=== PATIENT | female | born 1980 | race African-American/Black ===

== ENCOUNTER 2017-01-18 09:00 | Inpatient (IN) | payer OTHER ==
[2017-03-22 10:47] VITALS: BMI 29.2
--- NOTE | 2017-03-25 12:18 | HP ---
DATE OF SERVICE: 03/29/2017 HISTORY OF PRESENT ILLNESS: The patient is a 37-year-old female with lupus, who has developed avasc ular necrosis of her left hip, unresponsive to conservative treatment. She has pain in her hip radi ating towards her left knee, which has become disabling despite rest, restriction of activities, use of narcotic pain medication and also medications under the direction of her senior solutions workflow consultant includin g hydroxychloroquine. The pain is now interfering with day-to-day activities including walking and working. PAST MEDICAL HISTORY: As noted above. The patient had right total hip replacement 1 year ago with good results. 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 She does have a history of urinary tract infections and preope rative lab was found to have urinary tract infection from E. coli, which has been treated with nitro furantoin. CURRENT MEDICATIONS: Include colchicine, hydroxychloroquine, Macrobid, Protonix, albuterol. ALLERGIES: She is allergic to ALEVE, which causes hives. She has been also avoiding NSAIDS in the past including a meloxicam and Relafen. FAMILY HISTORY, SOCIAL HISTORY AND REVIEW OF SYSTEMS: Otherwise unremarkable. PHYSICAL EXAMINATION: GENERAL: Reveals a healthy appearing black female. HEENT: Unremarkable. NECK: Supple. CHEST: Clear. HEART: Regular rate and rhythm. ABDOMEN: Soft, nontender. PELVIC/RECTAL/BREAST: Deferred. EXTREMITIES: Pertinent findings are related to the left hip. There is tenderness in the anterior h ip. There is a left antalgic gait. There is decreased range of motion of the left hip and groin pa in with internal rotation. The left leg is 1 cm short. Neurovascular exam is intact. LABORATORY AND X-RAY FINDINGS: X-rays of the left hip reveal avascular necrosis with collapse of th e femoral head, which had distinct change from previous x-rays taken 1 year ago. IMPRESSION: 1. Avascular necrosis, left femoral head. 2. Systemic lupus erythematosus. 3. Status post right total hip replacement. 4. Preoperative urinary tract infection secondary to Escherichia coli, treated with Macrobid. PLAN: Left total hip replacement. The nature of the surgery, length of recovery, and potential com plications such as infection, loss of motion, incomplete relief, neurovascular injury, thromboemboli c phenomenon, leg length discrepancy, possible transfusion, and need for revision have been discusse d in detail.
[2017-03-29] MEDS ORDERED: Tranexamic Acid 1,000 MG/100 ML BAG ONE ×2 (06:13→09:17)
[2017-03-29] MEDS ORDERED: CEFAZOLIN/Water 2 GM/20 ML SYRINGE ONE (06:13)
[2017-03-29] MEDS ORDERED: Midazolam HCl 2 mg/2 ml Vial ONE (06:21)
[2017-03-29] MEDS ORDERED: Fentanyl 100 MCG/2 ML VIAL ONE ×3 (06:21→10:14)
[2017-03-29] MEDS ORDERED: Ondansetron HCl/PF 4 MG/2 ML Vial ONE (06:47)
[2017-03-29] MEDS ORDERED: Bupivacaine PF 0.5% 30 ML VIAL ONE (07:10)
[2017-03-29] MEDS ORDERED: diphenhydrAMINE 50 MG/ML VIAL IM PRN (07:15)
[2017-03-29] MEDS ORDERED: Naloxone HCl 0.4 mg/ml Vial IVP PRN (07:15)
[2017-03-29] MEDS ORDERED: Ondansetron HCl/PF 4 MG/2 ML Vial IVP PRN ×3 (07:15→11:20)
[2017-03-29] MEDS ORDERED: Eucerin (Mineral Oil/Petrolatum,White) 30 gm Jar TOP PRN (07:15)
[2017-03-29] MEDS ORDERED: traMADol HCl 50 MG TAB PO PRN ×3 (07:15→11:20)
[2017-03-29] MEDS ORDERED: Promethazine HCl 25 MG SUPP PR PRN (07:15)
[2017-03-29] MEDS ORDERED: diphenhydrAMINE 50 MG/ML VIAL IVP PRN (07:15)
[2017-03-29] MEDS ORDERED: HYDROcodone/Acetaminophen 5/325 mg Tablet PO PRN ×2 (07:15)
[2017-03-29] MEDS ORDERED: Ketorolac Tromethamine 30 MG/ML VIAL IVP PRN (07:15)
[2017-03-29] MEDS ORDERED: Naloxone HCl 0.4 mg/ml Vial IV PRN (07:15)
[2017-03-29] MEDS ORDERED: Fentanyl/Bupivacaine 250 ML in Premix Bag 1 BAG EPIDURAL SCH (07:15)
[2017-03-29] MEDS ORDERED: Bupivacaine 0.25% 10 ML VIAL EPIDURAL PRN (07:15)
[2017-03-29] MEDS ORDERED: Zolpidem Tartrate 5 MG TAB PO PRN ×2 (07:15→11:20)
[2017-03-29] MEDS ORDERED: Promethazine HCl 25 MG/ML VIAL IM PRN ×2 (07:15→09:07)
[2017-03-29] MEDS ORDERED: Ketorolac Tromethamine 30 MG/ML VIAL ONE (07:24)
[2017-03-29] MEDS ORDERED: Propofol 200 MG/20 ML VIAL ONE (07:24)
[2017-03-29] MEDS ORDERED: Hydrocortisone Sod Succ/PF 100 mg/2 ml Vial ONE (07:24)
[2017-03-29] MEDS ORDERED: Glycopyrrolate 0.2 MG/ML 5 ML SYRINGE ONE (07:24)
[2017-03-29] MEDS ORDERED: Esmolol 100 MG/10 ML VIAL ONE (07:24)
[2017-03-29 08:31] LABS: Bilirubin Negative (Negative); Blood, Urine Negative (Negative); Glucose, Urine (Dipstick) Negative (Negative); Ketone, Urine Negative (Negative); Nitrite Negative (Negative); Protein, Urine (Dipstick) Negative (Neg-Trace); Urobilinogen 0.2 mg/dL (0.2-1.0)
[2017-03-29 08:33] LABS: Bacteria/HPF None Seen HPF (None Seen); Hyaline Casts/LPF 0-3 HYALINE CAST LPF (0-3 Hyaline); Squamous Epithelial 0-3 HPF (0-3)
[2017-03-29] MEDS ORDERED: Promethazine HCl 25 MG/ML VIAL SLOW IVP PRN ×2 (09:07→11:20)
[2017-03-29] MEDS ORDERED: Tranexamic Acid 1,000 MG in Sodium Chloride 0.9% 100 ML IVPB SCH ×2 (09:30→11:20)
[2017-03-29] MEDS ORDERED: FENTANYL EPIDURAL ONE (09:41)
[2017-03-29] MEDS ORDERED: BUPIVACAINE EPIDURAL ONE (09:41)
--- NOTE | 2017-03-29 10:09 | OP ---
DATE OF PROCEDURE: 03/29/2017 SURGEON: Davis Duggan M.D. VICE PRESIDENT TALENT MANAGEMENT: Hao Galindo PA-C. ANESTHESIA: General plus epidural. PREOPERATIVE DIAGNOSIS: Avascular necrosis with lupus arthritis, left hip. POSTOPERATIVE DIAGNOSIS: Avascular necrosis with lupus arthritis, left hip. PROCEDURES: Left total hip replacement with uncemented Trident acetabular component with X3 polyeth ylene insert and uncemented Accolade femoral stem with 32 mm Delta ceramic femoral head. NARRATIVE REPORT: After satisfactory anesthesia was induced in supine position, the patient was tyson zakia in the lateral decubitus position and this position held with hip positioning device. Sequentia l compression device was used on the non-operative leg throughout the procedure. The patient's left hip was then prepped and draped in routine sterile fashion. Hip was approached through a lateral c urvilinear incision centered over the greater trochanter and carried down to subcutaneous tissues. Bleeding points controlled with Bovie cautery. IT band and gluteal fascia were split by skin incisi on. Direct lateral approach to the hip joint was accomplished by dividing the anterior third of the gluteus medius and minimus tendons with Bovie cautery and reflecting this as a single flap anterior ly and medially. Anterior capsulectomy was performed. There was total collapse of the femoral head, which appeared to be longstanding with complete sluffi ng of the articular surface of the femoral head and collapse. There was abundant scar tissue format ion. Anterior capsulectomy was performed. The remaining hip dislocated anteriorly. The femoral ne ck was osteotomized with an oscillating saw using a trial prosthesis as a guide. The acetabulum was cleaned of all soft tissue and debris and then reamed down to bleeding subchondral bone for a total of 48 mm. It was felt that a 48 mm Trident PSL outer shell could be placed in a press fit fashion. The permanent outer shell was hammered into position. There was good fit and stability of the out er shell and the permanent X3 polyethylene insert was snapped into position and the proximal femur e xposed. It was opened with a box osteotome and then rasped in sequence to accept a #2 Accolade femo ral rasp. Trial reduction with 132 degree angle trunnion and the standard neck length femoral head gave appropriate size, fit, stability, and correction of leg length discrepancy. Hip was again disl ocated anteriorly and the trial components removed. The permanent #2 Accolade femoral stem was then hammered in position and there was again good fit and stability of the component. The permanent 32 mm Delta ceramic standard neck length femoral head was then placed on the trunnion and the hip agai n reduced and found to be stable. It was copiously irrigated with pulsatile lavage. The abductors were repaired with interrupted #2 Vicryl. IT band and gluteal fascia were closed with interrupted # 2 Vicryl and a running #2 Quill. Subcutaneous tissues were closed with interrupted 2-0 Vicryl, and a running 0 Quill suture. Skin was closed with running subcuticular 3-0 Monoderm and SurgiSeal skin adhesive. Sterile dressing was applied and the patient returned to the supine position. A pillow placed between her legs. Sequential compression device was applied to the operated leg and she was awakened and taken to the recovery room in stable condition. There were no apparent intraoperative complications. The estimated blood loss was 300 mL.
[2017-03-29] MEDS ORDERED: Non-Formulary Item 1 EACH (Buprenorphine [Butrans] 1 PATCH) TOP SCH (11:20)
[2017-03-29] MEDS ORDERED: diphenhydrAMINE 25 MG CAP PO PRN (11:20)
[2017-03-29] MEDS ORDERED: PROVENTIL INHALER 6.7 G (200 INHALATIONS) INH PRN (11:20)
[2017-03-29] MEDS ORDERED: Fentanyl 100 MCG/2 ML VIAL SLOW IVP PRN ×2 (11:20)
[2017-03-29] MEDS ORDERED: HYDROcodone/Acetaminophen 10/325 mg Tablet PO PRN ×2 (11:20)
[2017-03-29] MEDS ORDERED: Acetaminophen 325 MG TAB PO PRN (11:20)
--- NOTE | 2017-03-29 11:48 | RAD ---
LEFT HIP TWO VIEWS: HISTORY: Postop. FINDINGS: A total hip prosthesis has been placed, which is in satisfactory position. No signs of fracture. IMPRESSION: Placement of left hip prosthesis. POS: SONAM
[2017-03-29] MEDS ORDERED: Colchicine 0.6 MG TAB PO SCH (12:15)
[2017-03-29] MEDS ORDERED: Ketorolac Tromethamine 30 MG/ML VIAL IVP SCH ×2 (14:00→14:15)
[2017-03-29] MEDS: Sodium Chloride 0.9% 1,000 ML IV SCH ×2 (14:25→20:48)
[2017-03-29] MEDS: CEFAZOLIN/Water 2 GM/20 ML SYRINGE SLOW IVP SCH ×2 (14:26→21:12)
--- NOTE | 2017-03-29 17:52 | PDOC.PN ---
- Subjective Encounter Start Date: 03/29/17 Encounter Start Time: 14:00 Pt seen for management of medical comorbidities including asthma. Sleepy but arousable, denies chest pain, shortness of breath, fevrers or chills. - Objective MAR Reviewed: Yes Vital Signs & Weight: Vital Signs (12 hours) Temp Pulse Resp BP Pulse Ox 03/29/17 17:10 99 14 100 03/29/17 11:20 97.3 F L 71 18 131/87 99 03/29/17 10:10 97.3 F L 71 18 144/88 H 99 Weight Weight 160 lb Phys Exam - Physical Examination Constitutional: NAD HEENT: moist MMs, oral pharynx no lesions Neck: supple Respiratory: clear to auscultation bilateral Cardiovascular: RRR Gastrointestinal: soft, positive bowel sounds Musculoskeletal: pulses present s/p L hip surgery Psychiatric: normal affect Dx/Plan (1) Asthma Code(s): J45.909 - UNSPECIFIED ASTHMA, UNCOMPLICATED Status: Chronic Qualifiers: Asthma severity: mild intermittent Asthma complication type: uncomplicated Qualified Code(s): J45.20 - Mild intermittent asthma, uncomplicated (2) GERD (gastroesophageal reflux disease) Code(s): K21.9 - GASTRO-ESOPHAGEAL REFLUX DISEASE WITHOUT ESOPHAGITIS Status: Chronic Qualifiers: Esophagitis presence: without esophagitis Qualified Code(s): K21.9 - Gastro -esophageal reflux disease without esophagitis (3) Iron deficiency anemia Code(s): D50.9 - IRON DEFICIENCY ANEMIA, UNSPECIFIED Status: Chronic (4) Lupus (systemic lupus erythematosus) Code(s): M32.9 - SYSTEMIC LUPUS ERYTHEMATOSUS, UNSPECIFIED Status: Chronic - Plan * . Continue home medications including bronchodilators. s/p surgery for lupus arthritis of L hip. Continue PPI. DVT prophylaxis and pain management per orthopedic service. Review of Systems - Review of Systems Constitutional: negative: Fever, Chills, Sweats, Weakness, Malaise, Other Respiratory: negative: Cough, Dry, Shortness of Breath, Hemoptysis, SOB with Excertion, Pleuritic Pain, Sputum, Wheezing Cardiovascular: negative: Chest Pain, Palpitations, Orthopnea, Paroxysmal Noc. Dyspnea, Edema, Light Headedness - Medications/Allergies Allergies/Adverse Reactions: Allergies Allergy/AdvReac Type Severity Reaction Status Date / Time naproxen [From Aleve] Allergy Verified 03/22/17 10:27 Medications: Current Medications Acetaminophen (Tylenol) 650 mg PO Q4H PRN PRN Reason: WU/ T > 101F; Mild Pain (1-3) Hydrocodone Bitart/Acetaminophen ([place] 5/325) 2 tab PO Q4HR [facility] Albuterol Sulfate (Proventil Hfa) 2 puff INH Q4HR PRN PRN Reason: Wheezing Last Admin: 03/29/17 17:10 Dose: 2 puff Aspirin (Aspirin Chewable) 81 mg PO BID [facility] Cefazolin Sodium (Ancef) 2 gm SLOW IVP Q8HR [facility] Stop: 03/29/17 22:01 Last Admin: 03/29/17 14:26 Dose: 2 gm Colchicine (Colcrys) 0.6 mg PO BID [facility] Diphenhydramine HCl (Benadryl) 25 mg PO Q3H PRN PRN Reason: Itching Diphenhydramine HCl (Benadryl) 25 mg IM Q3H PRN PRN Reason: Itching Diphenhydramine HCl (Benadryl) 25 mg IVP Q3H PRN PRN Reason: Itching Ferrous Gluconate (Fergon) 324 mg PO BID-WM [facility] Gabapentin (Neurontin) 300 mg PO HS [facility] Hydroxychloroquine Sulfate (Plaquenil) 200 mg PO BID [facility] Fentanyl Citrate 250 ml/ (Device) 250 mls @ 8 mls/hr EPIDURAL INF [facility] Sodium Chloride (Normal Saline 0.9%) 1,000 mls @ 100 mls/hr IV .Q10H [facility] Last Admin: 03/29/17 14:25 Dose: 1,000 mls Vancomycin HCl 1 gm/ Device 200 mls @ 200 mls/hr IVPB 1800 [facility] Stop: 03/29/17 18:59 Influenza Virus Vaccine (Fluzone Quad [id number] Syringe) 0.5 ml IM .ONCE ONE Stop: 03/29/17 21:01 Iron/Minerals/Multivitamins (Theragran M) 1 tab PO DAILY [facility] Ketorolac Tromethamine (Toradol) 30 mg IVP Q6HR [facility] Stop: 03/31/17 12:01 Methylprednisolone (Medrol Dospak) 2 mg PO QAM-WM [facility] Mineral Oil/White Petrolatum (Eucerin Cream) 0 gm TOP PRN PRN PRN Reason: Itching Naloxone HCl (Narcan) 0.2 mg IV Q5MIN PRN PRN Reason: RR <=8 OR OBTUNDED/UNAROUSABLE Naloxone HCl (Narcan) 0.1 mg IVP Q15MIN PRN PRN Reason: URINARY RETENTION Nitrofurantoin Macrocrystals (Macrobid) 100 mg PO BID [facility] Ondansetron HCl (Zofran) 4 mg IVP Q6H PRN PRN Reason: Nausea/Vomiting Pantoprazole Sodium (Protonix) 40 mg PO DAILY [facility] Promethazine HCl (Phenergan) 12.5 mg IM Q4H PRN PRN Reason: Nausea Promethazine HCl (Phenergan Suppository) 25 mg VA Q4H PRN PRN Reason: Nausea/Vomiting Promethazine HCl (Phenergan) 12.5 mg SLOW IVP Q4H PRN PRN Reason: Nausea/Vomiting Senna/Docusate Sodium (Senokot S) 2 tab PO BID [facility] Sodium Chloride (Flush - Normal Saline) 10 ml IVF PRN PRN PRN Reason: Saline Flush Tramadol HCl (Ultram) 50 mg PO Q6H PRN PRN Reason: Mild Pain 1-3 Tramadol HCl (Ultram) 100 mg PO Q6H PRN PRN Reason: Moderate Pain 4-6 Zolpidem Tartrate (Ambien) 5 mg PO HSPRN PRN PRN Reason: Insomnia
[2017-03-29] MEDS ORDERED: Vancomycin HCl 1 GM in Premix Bag 1 BAG IVPB SCH (18:00)
[2017-03-29] MEDS: HYDROcodone/Acetaminophen 5/325 mg Tablet PO SCH ×2 (18:37→22:28)
[2017-03-29] MEDS: Ketorolac Tromethamine 30 MG/ML VIAL IVP SCH (19:44)
[2017-03-29] MEDS ORDERED: FLU VACC QS2017-18 36 mo. & older 0.5 ML SYRINGE IM ONE (21:00)
[2017-03-29] MEDS: diphenhydrAMINE 25 MG CAP PO PRN (21:09)
[2017-03-29] MEDS: Gabapentin 300 MG CAP PO SCH (21:09)
[2017-03-29] MEDS: Colchicine 0.6 MG TAB PO SCH (21:09)
[2017-03-30] MEDS: Ketorolac Tromethamine 30 MG/ML VIAL IVP SCH ×5 (00:59→23:17)
[2017-03-30] MEDS: diphenhydrAMINE 25 MG CAP PO PRN ×4 (02:05→21:06)
[2017-03-30] MEDS: HYDROcodone/Acetaminophen 5/325 mg Tablet PO SCH ×6 (02:05→21:07)
[2017-03-30] MEDS: Sodium Chloride 0.9% 1,000 ML IV SCH ×2 (06:04→17:23)
[2017-03-30 07:10] LABS: Hematocrit 24.1 % (36.0-47.0); Mean Platelet Volume 6.6 fL (7.4-10.4); Red Blood Cell (RBC) Count 2.85 mill/uL (4.20-5.40); White Blood Cell (WBC) Count 4.4 thou/uL (4.8-10.8)
[2017-03-30] MEDS: Ferrous Gluconate 324 MG TAB PO SCH ×2 (08:53→17:16)
[2017-03-30] MEDS: Colchicine 0.6 MG TAB PO SCH ×2 (08:53→21:07)
[2017-03-30] MEDS: Hydroxychloroquine Sulfate 200 MG TAB PO SCH ×2 (08:53→21:07)
[2017-03-30] MEDS: Multivitamin W/ Minerals 1 TAB PO SCH (08:54)
[2017-03-30] MEDS: Senokot S 8.6-50 MG TAB PO SCH ×2 (08:54→21:07)
[2017-03-30] MEDS: Nitrofurantoin Monohyd/M-Cryst 100 MG CAP PO SCH ×2 (08:54→21:06)
[2017-03-30] MEDS: methylPREDNISolone 4 mg Tablet PO SCH (10:47)
--- NOTE | 2017-03-30 14:32 | PDOC.PN ---
- Subjective Encounter Start Date: 03/30/17 Encounter Start Time: 09:00 Pt seen for followup re: asthma. Denies chest pain, shortness of breath, fevers or chills. - Objective MAR Reviewed: Yes Vital Signs & Weight: Vital Signs (12 hours) Temp Pulse Resp BP BP Pulse Ox 03/30/17 11:50 98.6 F 90 16 120/76 100 03/30/17 08:45 98.5 F 92 18 121/78 99 03/30/17 04:00 98.3 F 89 18 107/68 100 Weight Admit Weight 160 lb Weight 160 lb I&O: 03/29/17 03/30/17 03/31/17 06:59 06:59 06:59 Intake Total 2857 Output Total 1900 Balance 957 Result Diagrams: 03/30/17 06:34 Phys Exam - Physical Examination Constitutional: NAD HEENT: moist MMs Neck: supple Respiratory: clear to auscultation bilateral Cardiovascular: RRR Gastrointestinal: soft s/p L hip surgery Neurological: moves all 4 limbs Psychiatric: normal affect Dx/Plan (1) Asthma Code(s): J45.909 - UNSPECIFIED ASTHMA, UNCOMPLICATED Status: Chronic Qualifiers: Asthma severity: mild intermittent Asthma complication type: uncomplicated Qualified Code(s): J45.20 - Mild intermittent asthma, uncomplicated (2) GERD (gastroesophageal reflux disease) Code(s): K21.9 - GASTRO-ESOPHAGEAL REFLUX DISEASE WITHOUT ESOPHAGITIS Status: Chronic Qualifiers: Esophagitis presence: without esophagitis Qualified Code(s): K21.9 - Gastro -esophageal reflux disease without esophagitis (3) Iron deficiency anemia Code(s): D50.9 - IRON DEFICIENCY ANEMIA, UNSPECIFIED Status: Chronic (4) Lupus (systemic lupus erythematosus) Code(s): M32.9 - SYSTEMIC LUPUS ERYTHEMATOSUS, UNSPECIFIED Status: Chronic - Plan * . Continue bronchodilators. Continue PPI. Continue steroids. s/p L hip surgery. DVT prophylaxis, pain management per orthopedic service. Review of Systems - Review of Systems Constitutional: negative: Fever, Chills, Sweats, Weakness, Malaise Respiratory: negative: Cough, Dry, Shortness of Breath, Hemoptysis, SOB with Excertion, Pleuritic Pain, Sputum, Wheezing - Medications/Allergies Allergies/Adverse Reactions: Allergies Allergy/AdvReac Type Severity Reaction Status Date / Time naproxen [From Aleve] Allergy Verified 03/22/17 10:27 Medications: Current Medications Acetaminophen (Tylenol) 650 mg PO Q4H PRN PRN Reason: WU/ T > 101F; Mild Pain (1-3) Hydrocodone Bitart/Acetaminophen ([place] 5/325) 2 tab PO Q4HR [facility] Last Admin: 03/30/17 12:56 Dose: 2 tab Albuterol Sulfate (Proventil Hfa) 2 puff INH Q4HR PRN PRN Reason: Wheezing Last Admin: 03/29/17 17:10 Dose: 2 puff Aspirin (Aspirin Chewable) 81 mg PO BID [facility] Last Admin: 03/30/17 08:54 Dose: 81 mg Colchicine (Colcrys) 0.6 mg PO BID [facility] Last Admin: 03/30/17 08:53 Dose: 0.6 mg Diphenhydramine HCl (Benadryl) 25 mg PO Q3H PRN PRN Reason: Itching Last Admin: 03/30/17 11:50 Dose: 25 mg Diphenhydramine HCl (Benadryl) 25 mg IM Q3H PRN PRN Reason: Itching Diphenhydramine HCl (Benadryl) 25 mg IVP Q3H PRN PRN Reason: Itching Ferrous Gluconate (Fergon) 324 mg PO BID-WM [facility] Last Admin: 03/30/17 08:53 Dose: 324 mg Gabapentin (Neurontin) 300 mg PO HS [facility] Last Admin: 03/29/17 21:09 Dose: 300 mg Hydroxychloroquine Sulfate (Plaquenil) 200 mg PO BID [facility] Last Admin: 03/30/17 08:53 Dose: 200 mg Fentanyl Citrate 250 ml/ (Device) 250 mls @ 8 mls/hr EPIDURAL INF [facility] Sodium Chloride (Normal Saline 0.9%) 1,000 mls @ 100 mls/hr IV .Q10H [facility] Last Admin: 03/30/17 06:04 Dose: Not Given Iron/Minerals/Multivitamins (Theragran M) 1 tab PO DAILY [facility] Last Admin: 03/30/17 08:54 Dose: 1 tab Ketorolac Tromethamine (Toradol) 30 mg IVP Q6HR [facility] Stop: 03/31/17 12:01 Last Admin: 03/30/17 11:43 Dose: 30 mg Methylprednisolone (Medrol Dospak) 2 mg PO QAM-WM [facility] Last Admin: 03/30/17 10:47 Dose: 2 mg Mineral Oil/White Petrolatum (Eucerin Cream) 0 gm TOP PRN PRN PRN Reason: Itching Naloxone HCl (Narcan) 0.2 mg IV Q5MIN PRN PRN Reason: RR <=8 OR OBTUNDED/UNAROUSABLE Naloxone HCl (Narcan) 0.1 mg IVP Q15MIN PRN PRN Reason: URINARY RETENTION Nitrofurantoin Macrocrystals (Macrobid) 100 mg PO BID [facility] Last Admin: 03/30/17 08:54 Dose: 100 mg Ondansetron HCl (Zofran) 4 mg IVP Q6H PRN PRN Reason: Nausea/Vomiting Pantoprazole Sodium (Protonix) 40 mg PO DAILY [facility] Last Admin: 03/30/17 08:53 Dose: 40 mg Promethazine HCl (Phenergan) 12.5 mg IM Q4H PRN PRN Reason: Nausea Promethazine HCl (Phenergan Suppository) 25 mg IA Q4H PRN PRN Reason: Nausea/Vomiting Promethazine HCl (Phenergan) 12.5 mg SLOW IVP Q4H PRN PRN Reason: Nausea/Vomiting Senna/Docusate Sodium (Senokot S) 2 tab PO BID [facility] Last Admin: 03/30/17 08:54 Dose: 2 tab Sodium Chloride (Flush - Normal Saline) 10 ml IVF PRN PRN PRN Reason: Saline Flush Last Admin: 03/30/17 08:55 Dose: 10 ml Tramadol HCl (Ultram) 50 mg PO Q6H PRN PRN Reason: Mild Pain 1-3 Tramadol HCl (Ultram) 100 mg PO Q6H PRN PRN Reason: Moderate Pain 4-6 Zolpidem Tartrate (Ambien) 5 mg PO HSPRN PRN PRN Reason: Insomnia
[2017-03-30] MEDS: Gabapentin 300 MG CAP PO SCH (21:07)
[2017-03-31] MEDS: HYDROcodone/Acetaminophen 5/325 mg Tablet PO SCH ×4 (01:23→13:06)
[2017-03-31] MEDS: Sodium Chloride 0.9% 1,000 ML IV SCH ×2 (03:02→15:05)
[2017-03-31] MEDS: Ketorolac Tromethamine 30 MG/ML VIAL IVP SCH ×2 (06:00→15:05)
[2017-03-31 06:40] LABS: Hematocrit 25.1 % (36.0-47.0); Mean Platelet Volume 7.4 fL (7.4-10.4); Red Blood Cell (RBC) Count 2.91 mill/uL (4.20-5.40); White Blood Cell (WBC) Count 4.8 thou/uL (4.8-10.8)
[2017-03-31] MEDS: Hydroxychloroquine Sulfate 200 MG TAB PO SCH (09:01)
[2017-03-31] MEDS: Multivitamin W/ Minerals 1 TAB PO SCH (09:03)
[2017-03-31] MEDS: Senokot S 8.6-50 MG TAB PO SCH (09:03)
[2017-03-31] MEDS: Ferrous Gluconate 324 MG TAB PO SCH (09:03)
[2017-03-31] MEDS: Colchicine 0.6 MG TAB PO SCH (09:03)
[2017-03-31] MEDS: Nitrofurantoin Monohyd/M-Cryst 100 MG CAP PO SCH (09:03)
--- NOTE | 2017-03-31 11:47 | PRG ---
PROGRESS NOTE, SIGN-OUT NOTE AND TRANSFER OF CARE NOTE DATE OF SERVICE: 03/31/2017 DATE OF ADMISSION: 03/29/2017 DATE OF DISCHARGE: 03/31/2017 PRIMARY CARE PHYSICIAN: Artemio Gipson M.D. DISCHARGE DISPOSITION: Home. PRIMARY DISCHARGE DIAGNOSIS: Status post left hip replacement. SECONDARY DISCHARGE DIAGNOSES: Chronic iron deficiency anemia; systemic lupus erythematosus; histor y of squamous cell carcinoma of the anus; anemia, normocytic, normochromic; asthma. PRIMARY PROCEDURES AND OPERATIONS: Left hip replacement. RADIOLOGICAL INVESTIGATION: Hip x-ray. SIGNIFICANT LABS: Hemoglobin 8.2. Urinalysis: Leukocyte esterase small. Urine culture is negativ e. DISCHARGE MEDICATIONS: ProAir HFA 2 puffs q.4 hourly p.r.n., aspirin 81 mg p.o. b.i.d. for DVT prop hylaxis then daily, Butrans patch every 7 days, Celebrex 200 mg as directed, colchicine 0.6 mg p.o. b.i.d., Colace 100 mg p.o. daily, gabapentin 300 mg p.o. at bedtime, [place] 5 two tablets q.4 hourly p.r.n., Plaquenil 200 mg p.o. b.i.d., Protonix 40 mg p.o. daily, Solu-Medrol 2 mg p.o. daily. CONTRAINDICATIONS: None. CODE STATUS: FULL CODE. INPATIENT CONSULTANTS: Dr. Duggan was primary while in the hospital. Sound team was consulted for m edical comanagement. TEST RESULTS PENDING ON DISCHARGE: None. ALLERGIES: NAPROXEN. DISCHARGE PLAN: Post-hospital, the patient has followup appointment with Dr. Duggan on 04/14/2017 at 2:00 p.m. The patient is advised to make appointment with primary care physician, Dr. Gipson. HOSPITAL COURSE: A 37-year-old female with the above mentioned medical problems, who was electively admitted by Dr. Duggan on 03/29/2017 for left hip replacement, which was done on that day and postop eratively Sound team was consulted for medical comanagement. While in hospital, we continued all th e patient's home medication as well as on discharge. While in hospital, she was given aspirin for d eep venous thrombosis prophylaxis. The patient did very well with PT, OT as per [facility] pr otocol treatment. She remained hemodynamically stable. She did very well with the [facility] protocol treatment and today the patient is planned for discharge by primary team. The patient is seen and examined at bedside today. Plan of care discussed with the patient and [facility] ly members. REVIEW OF SYSTEMS: Negative. PHYSICAL EXAMINATION: VITAL SIGNS: Currently, temperature 98.4, pulse 97, respiratory rate 18, saturation 99%, blood pres sure 137/84, weight 160 pounds. GENERAL: The patient is currently alert, awake, no acute distress. HEAD: Normocephalic, atraumatic. LUNGS: Clear. CARDIAC: S1, S2 regular without any murmur. ABDOMEN: Soft and benign. EXTREMITIES: No edema. NEUROLOGIC: Nonfocal examination. The patient will be discharged home today.
[2017-03-31] MEDS: methylPREDNISolone 4 mg Tablet PO SCH (13:07)
[2017-03-31 13:16] VITALS: BP 121/87; TEMP 97.8
== END 2017-03-31 16:02 | disposition home health service (06) | DRG 470 ==
LOC: SURG A 03-29 05:44 → SJJU 03-29 10:21
PROVIDERS: ADMIT Orthopaedic Surgery; ATTEND Orthopaedic Surgery
PROC: 0SRB04A Replacement of Left Hip Joint with Ceramic on Polyethylene Synthetic Substitute, Uncemented, Open Approach (ICD-10-PCS; principal; 2017-03-29)
PROC: 3E0T3BZ Introduction of Anesthetic Agent into Peripheral Nerves and Plexi, Percutaneous Approach (ICD-10-PCS; 2017-03-29)
DX: M87.052 Idiopathic aseptic necrosis of left femur (principal); M32.9 Systemic lupus erythematosus, unspecified; N39.0 Urinary tract infection, site not specified; D50.9 Iron deficiency anemia, unspecified; K21.9 Gastro-esophageal reflux disease without esophagitis; B96.20 Unspecified Escherichia coli [E. coli] as the cause of diseases classified elsewhere; J45.909 Unspecified asthma, uncomplicated; M35.00 Sjogren syndrome, unspecified; Z96.641 Presence of right artificial hip joint; Z85.89 Personal history of malignant neoplasm of other organs and systems
CPT/HCPCS: 36415; 81001; 85027; 87086; 94664; G8978-GP-CN; G8979-GP-CJ; G8987-GO-CL; G8988-GO-CI; J0131; J1720; J1885; J2250; J2405; J2704; J3010; J3370; J7509; S0020

== ENCOUNTER 2017-03-22 09:39 | Outpatient (CLI) | payer OTHER ==
[2017-03-22 12:05] LABS: Hematocrit 33.4 % (36.0-47.0); Mean Platelet Volume 7.1 fL (7.4-10.4); Red Blood Cell (RBC) Count 3.95 mill/uL (4.20-5.40); White Blood Cell (WBC) Count 5.1 thou/uL (4.8-10.8)
[2017-03-22 12:07] LABS: Bilirubin Negative (Negative); Blood, Urine Large (Negative); Glucose, Urine (Dipstick) Negative (Negative); Ketone, Urine Negative (Negative); Nitrite Positive (Negative); Protein, Urine (Dipstick) 100 mg/dL (Neg-Trace)
[2017-03-22 12:13] LABS: PTT 28.7 SEC (22.9-36.1); Prothrombin Time 13.1 SEC (12.0-14.7)
[2017-03-22 12:17] LABS: Bacteria/HPF 4+ HPF (None Seen); Squamous Epithelial 0-3 HPF (0-3)
[2017-03-22 12:21] LABS: Yeast-All Forms None Seen HPF (None Seen)
[2017-03-22 12:22] LABS: Hyaline Casts/LPF 4-6 HYALINE CAST LPF (0-3 Hyaline)
[2017-03-22 12:25] LABS: Anion Gap 12 mmol/L (10-20); BUN (Urea Nitrogen) 22 mg/dL (7.0-18.7); Calc. Creatinine Clearance 0 mL/min (70-130); Calcium 9.3 mg/dL (7.8-10.44); Carbon Dioxide 26 mmol/L (22-29); Chloride 107 mmol/L (98-107); Estimated GFR-MDRD Greater than 90
--- NOTE | 2017-03-22 15:11 | EKG ---
Test Reason : Blood Pressure : / mmHG Vent. Rate : 096 BPM Atrial Rate : 096 BPM P-R Int : 134 ms QRS Dur : 084 ms QT Int : 366 ms P-R-T Axes : 057 011 012 degrees QTc Int : 462 ms Normal sinus rhythm Normal ECG Confirmed by DAVIS SCRUGGS ([id number]) on 03/22/2017 3:11:06 PM Referred By: SHUN Confirmed By:DAVIS SCRUGGS
== END 2017-03-22 09:40 | disposition home or self-care (01) ==
LOC: LABBT 09:39
PROVIDERS: ATTEND Orthopaedic Surgery
DX: Z01.818 Encounter for other preprocedural examination (principal); Z96.642 Presence of left artificial hip joint
CPT/HCPCS: 80048; 81001; 84702; 85027; 85610; 85730; 86850; 86900; 86901; 87077; 87081; 87086; 87186; 93005; 93010

== ENCOUNTER 2017-06-01 07:49 | Inpatient (IN) | payer OTHER ==
[2017-06-01] MEDS ORDERED: Albuterol Sulfate 2.5 mg/0.5 ml Neb ONE (08:30)
[2017-06-01 08:38] LABS: #Eosinphils 0.1 thou/uL (0.0-0.7); #Lymphocytes 0.7 thou/uL (1.20-3.40); #Monocytes 0.3 thou/uL (0.11-0.59); #Neutrophils 2.7 thou/uL (1.40-6.50); %Basophils 0.4 % (0.0-1.0); %Eosinophils 2.2 % (0.0-10.0); %Monocytes 7.5 % (0.0-10.0); %Neutrophils 71.8 % (42.0-75.0); Hemoglobin 8.9 g/dL (12.0-16.0); Mean Corpuscular HGB CONC 30.3 g/dL (32.0-36.0); Mean Corpuscular Hemoglobin 24.7 pg (27.0-31.0); Mean Corpuscular Volume 81.5 fl (81.0-99.0); Mean Platelet Volume 9.6 fL (7.4-10.4); Platelet Count 205 thou/uL (130-400); RBC Distribution Width 14.6 % (11.5-14.5); Red Blood Cell (RBC) Count 3.58 mill/uL (4.20-5.40); White Blood Cell (WBC) Count 3.8 thou/uL (4.8-10.8)
[2017-06-01 08:52] LABS: ALT (SGPT) 10 U/L (8-55); AST (SGOT) 24 U/L (5-34); Albumin 3.6 g/dL (3.5-5.0); Alkaline Phosphatase 95 U/L (40-150); Anion Gap 10 mmol/L (10-20); BUN (Urea Nitrogen) 11 mg/dL (7.0-18.7); Bilirubin, Total 0.3 mg/dL (0.2-1.2); Calc. Creatinine Clearance 0 mL/min (70-130); Calcium 8.9 mg/dL (7.8-10.44); Carbon Dioxide 22 mmol/L (22-29); Chloride 106 mmol/L (98-107); Estimated GFR-MDRD 87; Globulin 5.7 g/dL (2.4-3.5); Glucose 94 mg/dL (70-105); Potassium 3.8 mmol/L (3.5-5.1); Protein, Total 9.3 g/dL (6.0-8.3); Sodium 134 mmol/L (136-145)
[2017-06-01] MEDS ORDERED: Dexamethasone 10 MG/ML VIAL ONE (09:07)
[2017-06-01] MEDS ORDERED: Magnesium Sulfate 2 GM/100 ML BAG ONE (09:09)
--- NOTE | 2017-06-01 09:15 | RAD ---
PORTABLE AP CHEST: Date: 06-01-17 History: Fever with onset of symptoms last night. Comparison: 04-01-16 FINDINGS: There is minimal patchy density seen within the left upper lobe. While some of this could be related to super imposition of structures, this does have a different appearance when compared to the prior e xam. Developing area of pneumonitis cannot be entirely excluded. Short internal follow up chest x-ray is recommended. The lungs are otherwise clear. Cardiac silhouette and pulmonary vasculature are with in normal limits. Osseous structures are intact. No other interval change. IMPRESSION: Minimal linear and patchy density in the left upper lobe. While this may represent superimposition of structures, this does have a different appearance compared to the prior exam. A developing area of p neumonitis cannot be entirely excluded. Short interval follow up chest x-ray is recommended. POS: SONAM
[2017-06-01] MEDS ORDERED: Ibuprofen 800 MG TAB ONE (10:13)
[2017-06-01 11:01] LABS: Bilirubin Negative (Negative); Blood, Urine Negative (Negative); Glucose, Urine (Dipstick) Negative (Negative); Leukocyte Negative (Negative); Nitrite Negative (Negative); Protein, Urine (Dipstick) Negative (Neg-Trace); Urobilinogen 0.2 mg/dL (0.2-1.0)
[2017-06-01 11:05] LABS: Clarity Clear (Clear)
[2017-06-01 11:06] LABS: Specific Gravity, Urine 1.003 (1.002-1.036)
[2017-06-01] MEDS ORDERED: Ondansetron HCl/PF 4 MG/2 ML Vial IVP PRN (12:27)
[2017-06-01] MEDS ORDERED: cloNIDine 0.1 MG TAB PO PRN (12:27)
[2017-06-01] MEDS ORDERED: Acetaminophen 325 MG TAB PO PRN (12:27)
[2017-06-01] MEDS ORDERED: HYDROcodone/Acetaminophen 5/325 mg Tablet PO PRN (12:27)
[2017-06-01] MEDS ORDERED: Chloraseptic Spray 180 ml Bottle PO PRN (12:27)
[2017-06-01] MEDS ORDERED: Senokot 8.6 MG TAB PO PRN (12:27)
[2017-06-01] MEDS ORDERED: Milk Of Magnesia 30 ML UDCUP PO PRN (12:27)
[2017-06-01] MEDS ORDERED: Benzonatate 100 MG CAP PO PRN (12:27)
[2017-06-01] MEDS ORDERED: Zolpidem Tartrate 5 MG TAB PO PRN (12:27)
[2017-06-01] MEDS ORDERED: Loperamide HCl 2 MG CAP PO PRN (12:27)
[2017-06-01] MEDS ORDERED: Loratadine 10 MG TAB PO PRN (12:27)
[2017-06-01] MEDS ORDERED: Sodium Chloride 0.65% Nasal 44 ML BOT EA NARE PRN (12:27)
[2017-06-01] MEDS ORDERED: Eucerin (Mineral Oil/Petrolatum,White) 30 gm Jar TOP PRN (12:27)
[2017-06-01] MEDS ORDERED: hydrALAZINE 20 MG/ML VIAL SLOW IVP PRN (12:27)
[2017-06-01] MEDS ORDERED: Mag-Al 1200 mg/1200 mg/30 ML UDCUP PO PRN (12:27)
[2017-06-01] MEDS ORDERED: Diabetic Tussin 200 MG/10 ML UDCUP PO PRN (12:27)
[2017-06-01] MEDS ORDERED: Artificial Tears 18 DROP/0.9 ML EA EYE PRN (12:27)
[2017-06-01] MEDS ORDERED: Ondansetron ODT 4 MG TAB PO PRN (12:27)
--- NOTE | 2017-06-01 12:32 | HP ---
PRIMARY CARE PHYSICIAN: Dr. Artemio Gipson. REASON FOR ADMISSION: Acute asthmatic bronchitis, sepsis. HISTORY OF PRESENT ILLNESS: A 37-year-old -Iranian female with a history of lupus who presen ryan to the emergency room with complaint of headache, body ache, generalized weakness which was start ed 2 days ago. All symptoms started with runny nose, followed by sore throat and then cough producti ve of white yellowish sputum. Last night patient was having high grade fever with chills. She start ed having increasing cough and she started wheezing. She was trying her home medications with nebuli zer medication, but her condition deteriorated overnight and this morning she was extremely short of breath and decided to go to emergency room for evaluation. When she came to ER, she was tachypneic, tachycardic with fever of 102.2. The patient had routine blood test, which was unremarkable includin g influenza screen came back negative. Patient was tachypneic, wheezing, and tachycardic and that is why we decided to keep this patient in the hospital for admission. 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 Beltran on Plaquenil and metoprolol, allergic rhinitis and eczema. PAST SURGICAL HISTORY: x4, axillary lymph node biopsy which were negative for metastasis, MediPort placement in right subclavian and subsequent removal, left total hip replacement, right tota l hip replacement, EGD and colonoscopy, tubal ligation, punch biopsy of perianal skin lesion. PAST PSYCHIATRIC HISTORY: Reviewed and negative. SOCIAL HISTORY: Patient is . She has four kids. She lives at home with her family. No hist ory of tobacco, alcohol or illicit drug abuse. FAMILY HISTORY: Positive for hypertension to father by age of 68, also diabetes, heart disease runs among several family members, but no strong family history of premature coronary artery disease, stro ke or cancer. REVIEW OF SYSTEMS: The following complete review of systems was negative, unless otherwise mentioned in the HPI or below: Constitutional: Weight loss or gain, ability to conduct usual activities. Skin: Rash, itching. Eyes: Double vision, pain. ENT/Mouth: Nose bleeding, neck stiffness, pain, tenderness. Cardiovascular: Palpitations, dyspnea on exertion, orthopnea. Respiratory: Shortness of breath, wheezing, cough, hemoptysis, fever or night sweats. Gastrointestinal: Poor appetite, abdominal pain, heartburn, nausea, vomiting, constipation, or diarr hea. Genitourinary: Urgency, frequency, dysuria, nocturia. Musculoskeletal: Pain, swelling. Neurologic/Psychiatric: Anxiety, depression. Allergy/Immunologic: Skin rash, bleeding tendency. Please see my HPI for pertinent positive and negative. All other review of systems reviewed and nega tive except as mentioned in the HPI. ALLERGIES: NAPROXEN. CURRENT HOME MEDICATIONS: Albuterol nebulization q.8 hourly and ProAir HFA 2 puffs q.4 hourly p.r.n. , aspirin 81 mg p.o. daily, Butrans patch every 7 days, Celebrex 200 mg as directed, colchicine 0.6 m g twice daily, gabapentin 300 mg p.o. at bedtime, [place] 5 one or two tablets q.4 hourly p.r.n., Plaqu enil 200 mg twice daily, Medrol 2 mg p.o. daily, and Protonix 40 mg p.o. daily. EMERGENCY ROOM COURSE: Patient has received Levaquin 750 mg, Motrin 800 mg IV, magnesium sulfate, De cadron 10 mg, albuterol inhalation and nebulization with DuoNeb therapy as well as 2 liters of IV flu id. PHYSICAL EXAMINATION: VITAL SIGNS: Currently, blood pressure 135/97, pulse 147, respiratory rate 24, temperature 102.2, sa turation 99% on room air, and weight 77.1 kilograms. GENERAL: Patient is currently alert, awake, mild respiratory distress, febrile. HEAD: Normocephalic, atraumatic. EYES: Pupils round, reactive to light. Extraocular muscle intact. ENT: Oropharynx within normal limits. Moist mucous membranes. Mild pharyngeal erythema noted. No exudate. NECK: Supple, no JVD, no meningeal signs of irritation. LUNGS: Bilateral end expiratory wheezing heard. No rales. CARDIAC: S1, S2 regular, tachycardia, no murmur, no gallop, no rub. ABDOMEN: Soft, bowel sounds present, nontender, nondistended. No organomegaly, no mass, no suprapub ic tenderness. BACK: Examination unremarkable, no CVA tenderness. EXTREMITIES: Upper extremity passive movements of all joints are normal. Lower extremities: No alok ma. Good peripheral pulsation. No calf tenderness. SKIN: No skin rash. HEMATOLOGICAL SYSTEM: No lymphadenopathy. PSYCHIATRIC: Normal affect. NEUROLOGIC: Nonfocal examination. IMAGING DATA AND SIGNIFICANT LABORATORY DATA: 1. EKG showing sinus tachycardia. Chest x-ray based on my review, minimal linear and patchy density in left upper lobe suspected for infiltration. 2. CBC: WBC 3.8, hemoglobin 8.9, and platelets 205. 3. BMP: Sodium 134, potassium 3.8, chloride 106, carbon dioxide 22, BUN 11, creatinine 0.89, glucos e 94, and calcium 8.9. 4. LFT: AST 24, ALT 10, alkaline phosphatase 95, albumin 3.6, lactic acid 0.7. Urinalysis normal. ASSESSMENT AND PLAN/IMPRESSION: 1. Acute asthmatic bronchitis with flu-like illness. The patient will require admission for her res piratory distress. She will be monitored on telemetry floor for her tachycardia. She will be treate d with DuoNeb every 4 hourly, Dulera 2 puffs inhalation b.i.d., Mucinex 600 mg 3 times daily, Solu-Me drol 40 mg IV q.6 hourly, and empiric antibiotic therapy with Rocephin and levofloxacin. The patient will be given symptomatic treatment for cough with Tessalon, Robitussin and Chloraseptic spray. 2. Flu-like illness, our suspicious for influenza or other virus is high and that is why we will martinez ck respiratory virus panel by PCR. 3. Lupus. Patient is already on high dose of steroid and that is why we will continue only Plaqueni l 200 mg twice daily as per home dosage. 4. Sepsis criteria. The patient is having high grade fever, tachycardia, leukopenia and patient is immunocompromised from chronic steroid therapy. We will follow up on culture result. Patient is sta rted on broad spectrum antibiotic therapy. 5. Anemia, normocytic normochromic, likely due to chronic disease from lupus. We will start ferrous sulfate 325 mg p.o. daily. 6. Gastroesophageal reflux disease. We will continue Protonix 40 mg p.o. daily. 7. Avascular necrosis of hip, required bilateral hip replacement, currently problem is stable. 8. Deep venous thrombosis prophylaxis, Lovenox 40 mg subcu daily. 9. Gastrointestinal prophylaxis, Protonix 40 mg p.o. daily. CODE STATUS: The patient is FULL CODE. Patient does not have any surrogate decision maker. Disposition plan based on clinical course. We are expecting patient's stay in the hospital more than 2 midnights. Plan of care discussed with the patient and family member at bedside in the emergency room.
[2017-06-01 12:42] VITALS: BMI 26.6
[2017-06-01] MEDS: cefTRIAXone\\ROCEPHIN 2 GM in Sodium Chloride 0.9% 100 ML IVPB SCH (14:02)
[2017-06-01] MEDS: Sodium Chloride 0.9% 1,000 ML IV SCH ×2 (14:02→22:17)
[2017-06-01] MEDS: guaiFENesin ER 600 MG TAB PO SCH ×2 (16:31→21:18)
[2017-06-01] MEDS ORDERED: COLCHICINE PO SCH (21:00)
[2017-06-01] MEDS: Gabapentin 300 MG CAP PO SCH (21:18)
[2017-06-01] MEDS: Hydroxychloroquine Sulfate 200 MG TAB PO SCH (21:18)
[2017-06-02] MEDS: Sodium Chloride 0.9% 1,000 ML IV SCH ×2 (00:55→09:20)
[2017-06-02 05:40] LABS: #Lymphocytes 0.6 thou/uL (1.20-3.40); #Monocytes 0.1 thou/uL (0.11-0.59); #Neutrophils 1.8 thou/uL (1.40-6.50); %Eosinophils 0.4 % (0.0-10.0); %Lymphocytes 25.1 % (21.0-51.0); %Monocytes 2.4 % (0.0-10.0); %Neutrophils 72.1 % (42.0-75.0); Hemoglobin 8.5 g/dL (12.0-16.0); Mean Corpuscular HGB CONC 31.2 g/dL (32.0-36.0); Mean Corpuscular Hemoglobin 25.7 pg (27.0-31.0); Mean Corpuscular Volume 82.2 fl (81.0-99.0); Mean Platelet Volume 9.2 fL (7.4-10.4); Platelet Count 209 thou/uL (130-400); RBC Distribution Width 14.4 % (11.5-14.5); Red Blood Cell (RBC) Count 3.31 mill/uL (4.20-5.40); White Blood Cell (WBC) Count 2.5 thou/uL (4.8-10.8)
[2017-06-02 06:05] LABS: ALT (SGPT) 9 U/L (8-55); AST (SGOT) 19 U/L (5-34); Albumin 3.4 g/dL (3.5-5.0); Alkaline Phosphatase 75 U/L (40-150); Anion Gap 11 mmol/L (10-20); BUN (Urea Nitrogen) 14 mg/dL (7.0-18.7); Bilirubin, Total Less than 0.2 mg/dL (0.2-1.2); Calc. Creatinine Clearance 125 mL/min (70-130); Calcium 8.9 mg/dL (7.8-10.44); Carbon Dioxide 19 mmol/L (22-29); Chloride 113 mmol/L (98-107); Estimated GFR-MDRD Greater than 90; Globulin 5.3 g/dL (2.4-3.5); Glucose 145 mg/dL (70-105); Protein, Total 8.7 g/dL (6.0-8.3); Sodium 139 mmol/L (136-145)
[2017-06-02] MEDS ORDERED: Colchicine 0.6 MG TAB PO SCH (09:00)
[2017-06-02] MEDS: Ferrous Sulfate 325 MG TAB PO SCH (09:21)
[2017-06-02] MEDS: Docusate 100 MG CAP PO SCH ×2 (09:22→20:51)
[2017-06-02] MEDS: Hydroxychloroquine Sulfate 200 MG TAB PO SCH ×2 (09:22→20:51)
[2017-06-02] MEDS: guaiFENesin ER 600 MG TAB PO SCH ×3 (09:22→20:51)
[2017-06-02] MEDS: Enoxaparin Sodium 40 MG/0.4 ML SYRINGE SC SCH (09:25)
[2017-06-02] MEDS: Colchicine 0.6 MG TAB PO SCH ×2 (09:42→20:51)
--- NOTE | 2017-06-02 11:06 | PDOC.PN ---
- Subjective Encounter Start Date: 06/02/17 Encounter Start Time: 07:20 -: old records requested/rev Patient seen and examined. No new complaints. No overnight events, pt feels much better, no fever - Objective Resuscitation Status: Resuscitation Status FULL:Full Resuscitation MAR Reviewed: Yes Vital Signs & Weight: Vital Signs (12 hours) Temp Pulse Resp BP BP Pulse Ox 06/02/17 08:00 97.8 F 115 H 20 06/02/17 07:47 97.8 F 115 H 20 128/71 93 L 06/02/17 06:51 96 06/02/17 06:48 98 16 06/02/17 03:17 98.1 F 107 H 16 124/79 92 L 06/02/17 02:25 101 H 16 94 L 06/02/17 00:00 98 F 114 H 20 133/66 97 Weight Weight 154 lb I&O: 06/01/17 06/02/17 06/03/17 06:59 06:59 06:59 Intake Total 1951 240 Balance 1951 240 Result Diagrams: 06/02/17 05:24 06/02/17 05:24 EKG Reviewed by me: Yes (sinus tachycardia) Phys Exam - Physical Examination Constitutional: NAD HEENT: PERRLA, moist MMs, sclera anicteric Neck: no JVD, supple Respiratory: no rales, wheezing present Cardiovascular: RRR, no significant murmur, no rub Gastrointestinal: soft, non-tender, no distention, positive bowel sounds Musculoskeletal: no edema, pulses present Neurological: non-focal, normal sensation, moves all 4 limbs Lymphatic: no nodes Psychiatric: normal affect, A&O x 3 Skin: no rash, normal turgor Dx/Plan (1) Acute asthmatic bronchitis Code(s): J45.909 - UNSPECIFIED ASTHMA, UNCOMPLICATED Status: Acute (2) Acute bronchitis due to human metapneumovirus Code(s): J20.8 - ACUTE BRONCHITIS DUE TO OTHER SPECIFIED ORGANISMS Status: Acute (3) Sepsis Code(s): A41.9 - SEPSIS, UNSPECIFIED ORGANISM Status: Acute (4) Anemia, normocytic normochromic Code(s): D64.9 - ANEMIA, UNSPECIFIED Status: Chronic (5) GERD (gastroesophageal reflux disease) Code(s): K21.9 - GASTRO-ESOPHAGEAL REFLUX DISEASE WITHOUT ESOPHAGITIS Status: Chronic Qualifiers: (6) Lupus (systemic lupus erythematosus) Code(s): M32.9 - SYSTEMIC LUPUS ERYTHEMATOSUS, UNSPECIFIED Status: Chronic (7) Squamous cell cancer, anus Code(s): C21.0 - MALIGNANT NEOPLASM OF ANUS, UNSPECIFIED Status: Chronic - Plan cont current plan of care, plan discussed w/ family, continue antibiotics, respiratory therapy * ontinue rocephin and levaquin * medication reviewed as below * symptomatic treatment * will reduce solumedrol 20 mg iv q 6 hourly * expecting discharge in 24-48 hours. * change duoneb q 6 hr * DC IVF Review of Systems - Review of Systems Constitutional: negative: fever, chills, sweats, weakness, malaise, other Eyes: negative: Pain, Vision Change, Conjunctivae Inflammation, Eyelid Inflammation, Redness, Other ENT: negative: Ear Pain, Ear Discharge, Nose Pain, Nose Discharge, Nose Congestion, Mouth Pain, Mouth Swelling, Throat Pain, Throat Swelling, Other Respiratory: Cough, Wheezing. negative: Dry, Shortness of Breath, Hemoptysis, SOB with Excertion, Pleuritic Pain, Sputum Cardiovascular: negative: chest pain, palpitations, orthopnea, paroxysmal nocturnal dyspnea, edema, light headedness, other Gastrointestinal: negative: Nausea, Vomiting, Abdominal Pain, Diarrhea, Constipation, Melena, Hematochezia, Other Genitourinary: negative: Dysuria, Frequency, Incontinence, Hematuria, Retention , Other Musculoskeletal: negative: Neck Pain, Shoulder Pain, Arm Pain, Back Pain, Hand Pain, Leg Pain, Foot Pain, Other Skin: negative: Rash, Lesions, Levi, Bruising, Other - Medications/Allergies Allergies/Adverse Reactions: Allergies Allergy/AdvReac Type Severity Reaction Status Date / Time naproxen [From Aleve] Allergy Verified 03/22/17 10:27 Medications: Current Medications Acetaminophen (Tylenol) 650 mg PO Q4H PRN PRN Reason: Headache/Fever or Pain Hydrocodone Bitart/Acetaminophen ([place] 5/325) 1 tab PO Q4H PRN PRN Reason: Moderate Pain (4-6) Al Hydroxide/Mg Hydroxide (Maalox) 30 ml PO Q6H PRN PRN Reason: Heartburn or Indigestion Albuterol/Ipratropium (Duoneb) 3 ml NEB Q2H PRN PRN Reason: SOB &/or Wheezing Albuterol/Ipratropium (Duoneb) 3 ml NEB [id number] [facility] Artificial Tears (Tears Naturale) 0 drop EA EYE PRN PRN PRN Reason: Dry Eyes Aspirin (Aspirin Chewable) 81 mg PO DAILY [facility] Last Admin: 06/02/17 09:22 Dose: 81 mg Benzonatate (Tessalon) 100 mg PO Q4H PRN PRN Reason: Cough Clonidine (Catapres) 0.1 mg PO Q4H PRN PRN Reason: Systolic BP > 180 Colchicine (Colcrys) 0.6 mg PO BID [facility] Last Admin: 06/02/17 09:42 Dose: 0.6 mg Docusate Sodium (Colace) 100 mg PO BID [facility] Last Admin: 06/02/17 09:22 Dose: 100 mg Enoxaparin Sodium (Lovenox) 40 mg SC 0900 [facility] Last Admin: 06/02/17 09:25 Dose: Not Given Ferrous Sulfate (Feosol) 325 mg PO QAM-[facility] Last Admin: 06/02/17 09:21 Dose: 325 mg Gabapentin (Neurontin) 300 mg PO HS [facility] Last Admin: 06/01/17 21:18 Dose: 300 mg Guaifenesin (Robitussin Sf) 200 mg PO Q4H PRN PRN Reason: Cough Guaifenesin (Mucinex) 600 mg PO TID [facility] Last Admin: 06/02/17 09:22 Dose: 600 mg Hydralazine HCl (Apresoline) 10 mg SLOW IVP Q4H PRN PRN Reason: Systolic BP > 180 Hydroxychloroquine Sulfate (Plaquenil) 200 mg PO BID [facility] Last Admin: 06/02/17 09:22 Dose: 200 mg Ceftriaxone Sodium 2 gm/ (Sodium Chloride) 100 mls @ 200 mls/hr IVPB 1300 [facility] Last Admin: 06/01/17 14:02 Dose: 100 mls Levofloxacin 750 mg/ Device 150 mls @ 100 mls/hr IVPB Q24HR [facility] Last Admin: 06/01/17 13:55 Dose: Not Given Loperamide HCl (Imodium) 2 mg PO PRN PRN PRN Reason: Diarrhea/Loose Stools Loratadine (Claritin) 10 mg PO DAILYPRN PRN PRN Reason: Sinus Symptoms Magnesium Hydroxide (Milk Of Magnesium) 30 ml PO DAILYPRN PRN PRN Reason: Constipation Methylprednisolone Sodium Succinate (Solu-Medrol) 20 mg IVP 0200,0800,1400, 2000 [facility] Mineral Oil/White Petrolatum (Eucerin Cream) 0 gm TOP BIDPRN PRN PRN Reason: Dry Skin (Buprenorphine [ (Butrans] 1 Patch)) 0 patch TOP Sa [facility] Ondansetron HCl (Zofran Odt) 4 mg PO Q6H PRN PRN Reason: Nausea/Vomiting Ondansetron HCl (Zofran) 4 mg IVP Q6H PRN PRN Reason: Nausea/Vomiting Pantoprazole Sodium (Protonix) 40 mg PO DAILY [facility] Last Admin: 06/02/17 09:22 Dose: 40 mg Phenol (Chloraseptic [place] 180 Ml Bot) 0 ml PO PRN PRN PRN Reason: Sore Throat Senna (Senokot) 2 tab PO HSPRN PRN PRN Reason: Constipation Sodium Chloride ([place] Nasal [place] 0.65%) 0 ml EA NARE QIDPRN PRN PRN Reason: Nasal Congestion Zolpidem Tartrate (Ambien) 5 mg PO HSPRN PRN PRN Reason: Insomnia
[2017-06-02] MEDS: cefTRIAXone\\ROCEPHIN 2 GM in Sodium Chloride 0.9% 100 ML IVPB SCH (14:23)
[2017-06-02] MEDS: Gabapentin 300 MG CAP PO SCH (20:51)
[2017-06-03 05:44] LABS: #Lymphocytes 0.8 thou/uL (1.20-3.40); #Monocytes 0.2 thou/uL (0.11-0.59); #Neutrophils 5.2 thou/uL (1.40-6.50); %Basophils 0.3 % (0.0-1.0); %Eosinophils 0.3 % (0.0-10.0); %Lymphocytes 12.2 % (21.0-51.0); %Monocytes 3.1 % (0.0-10.0); %Neutrophils 84.1 % (42.0-75.0); Hemoglobin 8.5 g/dL (12.0-16.0); Mean Corpuscular HGB CONC 31.2 g/dL (32.0-36.0); Mean Corpuscular Hemoglobin 25.7 pg (27.0-31.0); Mean Corpuscular Volume 82.5 fl (81.0-99.0); Platelet Count 223 thou/uL (130-400); RBC Distribution Width 14.5 % (11.5-14.5); Red Blood Cell (RBC) Count 3.32 mill/uL (4.20-5.40); White Blood Cell (WBC) Count 6.2 thou/uL (4.8-10.8)
[2017-06-03 06:02] LABS: Anion Gap 11 mmol/L (10-20); BUN (Urea Nitrogen) 17 mg/dL (7.0-18.7); Calc. Creatinine Clearance 131 mL/min (70-130); Calcium 8.8 mg/dL (7.8-10.44); Carbon Dioxide 20 mmol/L (22-29); Chloride 110 mmol/L (98-107); Estimated GFR-MDRD Greater than 90; Glucose 124 mg/dL (70-105); Potassium 3.8 mmol/L (3.5-5.1); Sodium 137 mmol/L (136-145)
[2017-06-03 07:46] VITALS: BP 122/73; TEMP 98.1
[2017-06-03] MEDS: Hydroxychloroquine Sulfate 200 MG TAB PO SCH (09:45)
[2017-06-03] MEDS: Docusate 100 MG CAP PO SCH (09:45)
[2017-06-03] MEDS: Ferrous Sulfate 325 MG TAB PO SCH (09:45)
[2017-06-03] MEDS: guaiFENesin ER 600 MG TAB PO SCH (09:45)
[2017-06-03] MEDS: Colchicine 0.6 MG TAB PO SCH (09:45)
[2017-06-03] MEDS: Enoxaparin Sodium 40 MG/0.4 ML SYRINGE SC SCH (09:46)
--- NOTE | 2017-06-03 09:52 | PDOC.PN ---
- Subjective Encounter Start Date: 06/03/17 Encounter Start Time: 07:30 Patient seen and examined. No new complaints. No overnight events - Objective Resuscitation Status: Resuscitation Status FULL:Full Resuscitation MAR Reviewed: Yes Vital Signs & Weight: Vital Signs (12 hours) Temp Pulse Resp BP Pulse Ox 06/03/17 08:00 98.1 F 105 H 20 06/03/17 07:45 98.1 F 105 H 20 122/73 95 06/03/17 06:30 12 06/03/17 03:18 98.2 F 102 H 16 139/72 99 06/03/17 00:50 92 16 99 06/02/17 23:44 97.8 F 94 16 137/65 98 Weight Weight 158 lb 12.8 oz I&O: 06/02/17 06/03/17 06/04/17 06:59 06:59 06:59 Intake Total 1951 1470 Output Total 450 Balance 1951 1020 Result Diagrams: 06/03/17 05:21 06/03/17 05:21 EKG Reviewed by me: Yes (nsr) Phys Exam - Physical Examination Constitutional: NAD HEENT: PERRLA, moist MMs, sclera anicteric Neck: no JVD, supple Respiratory: no wheezing, no rales, no rhonchi Cardiovascular: RRR, no significant murmur, no rub Gastrointestinal: soft, non-tender, no distention, positive bowel sounds Musculoskeletal: no edema, pulses present Neurological: non-focal, normal sensation, moves all 4 limbs Lymphatic: no nodes Psychiatric: normal affect, A&O x 3 Skin: no rash, normal turgor Dx/Plan (1) Acute asthmatic bronchitis Code(s): J45.909 - UNSPECIFIED ASTHMA, UNCOMPLICATED Status: Acute (2) Acute bronchitis due to human metapneumovirus Code(s): J20.8 - ACUTE BRONCHITIS DUE TO OTHER SPECIFIED ORGANISMS Status: Acute (3) Sepsis Code(s): A41.9 - SEPSIS, UNSPECIFIED ORGANISM Status: Acute (4) Anemia, normocytic normochromic Code(s): D64.9 - ANEMIA, UNSPECIFIED Status: Chronic (5) GERD (gastroesophageal reflux disease) Code(s): K21.9 - GASTRO-ESOPHAGEAL REFLUX DISEASE WITHOUT ESOPHAGITIS Status: Chronic Qualifiers: (6) Lupus (systemic lupus erythematosus) Code(s): M32.9 - SYSTEMIC LUPUS ERYTHEMATOSUS, UNSPECIFIED Status: Chronic (7) Squamous cell cancer, anus Code(s): C21.0 - MALIGNANT NEOPLASM OF ANUS, UNSPECIFIED Status: Chronic - Plan cont current plan of care, plan discussed w/ family, continue antibiotics, respiratory therapy * medication reviewed as below * symptomatic treatment * levaquin for 7 days * stable for discharge * see discharge jose. Review of Systems - Review of Systems ENT: negative: Ear Pain, Ear Discharge, Nose Pain, Nose Discharge, Nose Congestion, Mouth Pain, Mouth Swelling, Throat Pain, Throat Swelling, Other Respiratory: negative: Cough, Dry, Shortness of Breath, Hemoptysis, SOB with Excertion, Pleuritic Pain, Sputum, Wheezing Cardiovascular: negative: chest pain, palpitations, orthopnea, paroxysmal nocturnal dyspnea, edema, light headedness, other Gastrointestinal: negative: Nausea, Vomiting, Abdominal Pain, Diarrhea, Constipation, Melena, Hematochezia, Other Genitourinary: negative: Dysuria, Frequency, Incontinence, Hematuria, Retention , Other Musculoskeletal: negative: Neck Pain, Shoulder Pain, Arm Pain, Back Pain, Hand Pain, Leg Pain, Foot Pain, Other Skin: negative: Rash, Lesions, Levi, Bruising, Other - Medications/Allergies Allergies/Adverse Reactions: Allergies Allergy/AdvReac Type Severity Reaction Status Date / Time naproxen [From Aleve] Allergy Verified 03/22/17 10:27 Medications: Current Medications Acetaminophen (Tylenol) 650 mg PO Q4H PRN PRN Reason: Headache/Fever or Pain Hydrocodone Bitart/Acetaminophen ([place] 5/325) 1 tab PO Q4H PRN PRN Reason: Moderate Pain (4-6) Last Admin: 06/02/17 13:01 Dose: 1 tab Al Hydroxide/Mg Hydroxide (Maalox) 30 ml PO Q6H PRN PRN Reason: Heartburn or Indigestion Albuterol/Ipratropium (Duoneb) 3 ml NEB Q2H PRN PRN Reason: SOB &/or Wheezing Albuterol/Ipratropium (Duoneb) 3 ml NEB [id number] Last Admin: 06/03/17 06:30 Dose: 3 ml Artificial Tears (Tears Naturale) 0 drop EA EYE PRN PRN PRN Reason: Dry Eyes Aspirin (Aspirin Chewable) 81 mg PO DAILY [facility] Last Admin: 06/03/17 09:45 Dose: 81 mg Benzonatate (Tessalon) 100 mg PO Q4H PRN PRN Reason: Cough Clonidine (Catapres) 0.1 mg PO Q4H PRN PRN Reason: Systolic BP > 180 Colchicine (Colcrys) 0.6 mg PO BID [facility] Last Admin: 06/03/17 09:45 Dose: 0.6 mg Docusate Sodium (Colace) 100 mg PO BID [facility] Last Admin: 06/03/17 09:45 Dose: 100 mg Enoxaparin Sodium (Lovenox) 40 mg SC 0900 [facility] Last Admin: 06/03/17 09:46 Dose: Not Given Ferrous Sulfate (Feosol) 325 mg PO QAM-[facility] Last Admin: 06/03/17 09:45 Dose: 325 mg Gabapentin (Neurontin) 300 mg PO HS [facility] Last Admin: 06/02/17 20:51 Dose: 300 mg Guaifenesin (Robitussin Sf) 200 mg PO Q4H PRN PRN Reason: Cough Guaifenesin (Mucinex) 600 mg PO TID [facility] Last Admin: 06/03/17 09:45 Dose: 600 mg Hydralazine HCl (Apresoline) 10 mg SLOW IVP Q4H PRN PRN Reason: Systolic BP > 180 Hydroxychloroquine Sulfate (Plaquenil) 200 mg PO BID [facility] Last Admin: 06/03/17 09:45 Dose: 200 mg Ceftriaxone Sodium 2 gm/ (Sodium Chloride) 100 mls @ 200 mls/hr IVPB 1300 [facility] Last Admin: 06/02/17 14:23 Dose: 100 mls Levofloxacin 750 mg/ Device 150 mls @ 100 mls/hr IVPB Q24HR [facility] Last Admin: 06/02/17 12:53 Dose: 150 mls Loperamide HCl (Imodium) 2 mg PO PRN PRN PRN Reason: Diarrhea/Loose Stools Loratadine (Claritin) 10 mg PO DAILYPRN PRN PRN Reason: Sinus Symptoms Magnesium Hydroxide (Milk Of Magnesium) 30 ml PO DAILYPRN PRN PRN Reason: Constipation Methylprednisolone Sodium Succinate (Solu-Medrol) 20 mg IVP 0200,0800,1400, 2000 [facility] Last Admin: 06/03/17 09:42 Dose: 20 mg Mineral Oil/White Petrolatum (Eucerin Cream) 0 gm TOP BIDPRN PRN PRN Reason: Dry Skin (Buprenorphine [ (Butrans] 1 Patch)) 0 patch TOP [facility] Ondansetron HCl (Zofran Odt) 4 mg PO Q6H PRN PRN Reason: Nausea/Vomiting Ondansetron HCl (Zofran) 4 mg IVP Q6H PRN PRN Reason: Nausea/Vomiting Pantoprazole Sodium (Protonix) 40 mg PO DAILY [facility] Last Admin: 06/03/17 09:46 Dose: 40 mg Phenol (Chloraseptic [place] 180 Ml Bot) 0 ml PO PRN PRN PRN Reason: Sore Throat Senna (Senokot) 2 tab PO HSPRN PRN PRN Reason: Constipation Sodium Chloride ([place] Nasal [place] 0.65%) 0 ml EA NARE QIDPRN PRN PRN Reason: Nasal Congestion Zolpidem Tartrate (Ambien) 5 mg PO HSPRN PRN PRN Reason: Insomnia
--- NOTE | 2017-06-03 11:21 | DIS ---
DATE OF ADMISSION: 06/01/2017 DATE OF DISCHARGE: 06/03/2017 PRIMARY CARE PHYSICIAN: Artemio Gipson M.D. DISCHARGE DISPOSITION: Home. PRIMARY DISCHARGE DIAGNOSES: 1. Acute asthmatic bronchitis due to human metapneumovirus. 2. Sepsis due to problem #1 resolved. SECONDARY DISCHARGE DIAGNOSES: History of squamous cell carcinoma of pannus, under remission, system ic lupus erythematosus, gastroesophageal reflux disease, normocytic normochromic anemia, obesity with body mass index 30. PRIMARY PROCEDURE/OPERATION: None. RADIOLOGICAL INVESTIGATION: Chest x-ray was unremarkable. SIGNIFICANT LABORATORY DATA: WBC 6.2, hemoglobin 8.5, platelet 223. Sodium 137, potassium 3.8, BUN 17, creatinine 0.68, calcium 8.8. LFTs normal. Albumin 3.4. Urinalysis normal. Blood culture nega tive. Influenza screen negative. Respiratory panel was positive for human metapneumovirus. TEST RESULTS PENDING ON DISCHARGE: None. ALLERGIES: NAPROXEN. DISCHARGE PLAN: Post hospital, the patient will follow up with primary care physician in 1 week. DISCHARGE MEDICATIONS: Aspirin 81 mg p.o. daily, Tessalon 100 mg q.4 hourly p.r.n., Butrans every we ek, Celebrex 200 mg as directed p.r.n., colchicine 0.6 mg p.o. b.i.d., Colace 100 mg p.o. b.i.d., kathy jd sulfate 325 mg p.o. daily, Neurontin 300 mg p.o. at bedtime, Mucinex 600 mg p.o. t.i.d. for 7 da ys, [place] 10 one tablet q.i.d. p.r.n., Plaquenil 200 mg p.o. b.i.d., Levaquin 500 mg p.o. daily for 7 days, Medrol 4 mg p.o. daily, Dulera 2 puffs inhalation b.i.d., Protonix 40 mg p.o. daily, prednison e 20 mg p.o. b.i.d. for 7 days, Ventolin inhaler 2 puffs q.6 hours p.r.n. CONTRAINDICATIONS: None. CODE STATUS: FULL CODE. INPATIENT FURNITURE RENTAL CONSULTANT: None. ALLERGIES: NAPROXEN. DISCHARGE PLAN: Post hospital, patient is advised to follow up with primary care physician in 1 week . HOSPITAL COURSE: A 37-year-old female who was admitted by me. Please see my HPI for further details . The patient was having upper respiratory infection. Subsequently, her condition gotten worse and she was having wheezing and shortness of breath with high grade fever. The patient was meeting sepsi s with systemic inflammatory response syndrome criteria. We suspected viral infection. The patient was tachycardic and she was meeting sepsis criteria and that is why she was admitted to telemetry kay or. She was treated with broad spectrum antibiotic therapy with Rocephin, Levaquin, DuoNeb, Dulera, Solu-Medrol, Mucinex, Singulair and symptomatic treatment for cough. Her influenza screen was negati ve, but respiratory panel for PCR was positive for human metapneumovirus. Patient had significant improvement with medical therapy. The patient appeared normal and today she expressed her own wish to go home. All new medication mentioned above, we are prescribing upon disch owen and sent to her pharmacy. PHYSICAL EXAMINATION: Patient is seen and examined at bedside today. Please see my progress note fr om today for further details.
[2017-06-05] MEDS ORDERED: BUPRENORPHINE TOP SCH (08:45)
--- NOTE | 2017-06-19 19:46 | EKG ---
Test Reason : Blood Pressure : / mmHG Vent. Rate : 131 BPM Atrial Rate : 131 BPM P-R Int : 124 ms QRS Dur : 082 ms QT Int : 320 ms P-R-T Axes : 062 008 021 degrees QTc Int : 472 ms Sinus tachycardia Otherwise normal ECG Confirmed by CHELA NEWTON, REGINALD ([id number]), film editor supervisor CHARLENE CRZU ([id number]) on 06/19/2017 7:45:38 PM Referred By: Confirmed By:REGINALD YORK MD
== END 2017-06-03 11:10 | disposition home or self-care (01) | DRG 872 ==
LOC: ERS 07:49 → 2SE 12:18
PROVIDERS: ADMIT Internal Medicine; ATTEND Internal Medicine
DX: A41.89 Other specified sepsis (principal); M32.9 Systemic lupus erythematosus, unspecified; Z85.048 Personal history of other malignant neoplasm of rectum, rectosigmoid junction, and anus; Z92.21 Personal history of antineoplastic chemotherapy; Z92.3 Personal history of irradiation; Z96.643 Presence of artificial hip joint, bilateral; Z88.6 Allergy status to analgesic agent; Z79.82 Long term (current) use of aspirin; Z79.891 Long term (current) use of opiate analgesic; Z79.51 Long term (current) use of inhaled steroids; Z79.52 Long term (current) use of systemic steroids; D64.9 Anemia, unspecified; K21.9 Gastro-esophageal reflux disease without esophagitis; R65.20 Severe sepsis without septic shock; B97.81 Human metapneumovirus as the cause of diseases classified elsewhere; E66.9 Obesity, unspecified; Z68.30 Body mass index [BMI] 30.0-30.9, adult; J20.8 Acute bronchitis due to other specified organisms; J45.909 Unspecified asthma, uncomplicated; M06.9 Rheumatoid arthritis, unspecified; R06.03 Acute respiratory distress
CPT/HCPCS: 36415; 71010; 80048; 80053; 81003; 83605; 85025; 87040; 87633; 87798; 87804; 90471; 90732; 93005; 94640; 96361; 96365; 96367; 96375; G0009; J0696; J1100; J1650; J1956; J2920; J3475; J7050; J7611; J7620

== ENCOUNTER 2017-08-27 12:49 | Emergency (ER) | payer OTHER ==
--- NOTE | 2017-08-27 13:47 | RAD ---
LEFT FOOT 3 VIEWS: Date: 08/27/17 HISTORY: Kitchen door fell on big toe. Pain. COMPARISON: None. FINDINGS: There is mild bony demineralization. Joint spaces are preserved. Lisfranc alignment is maintained. No fracture. IMPRESSION: No fracture. Correlate clinically. If there is pain or point tenderness, immobilization and follow-up imaging in 7-10 days. POS: [facility]
[2017-08-27] MEDS ORDERED: Acetaminophen 500 MG TAB ONE (14:26)
== END 2017-08-27 14:48 | disposition home or self-care (01) ==
LOC: ERS 12:49
DX: S90.112A Contusion of left great toe without damage to nail, initial encounter (principal); J45.909 Unspecified asthma, uncomplicated; W17.89XA Other fall from one level to another, initial encounter

== ENCOUNTER 2017-10-21 09:54 | Day surgery (SDC) | payer OTHER ==
[2017-10-20 14:47] VITALS: BMI 28.5
[~2017-10-21 09:54] MED LIST: Lidocaine 1% PF 5 ML VIAL ONE; PROPOFOL 200 MG/20 ML VIAL ONE
[2017-10-21] MEDS ORDERED: Midazolam HCl 2 mg/2 ml Vial ONE (12:16)
--- NOTE | 2017-10-21 16:09 | OP ---
DATE OF PROCEDURE: 10/21/2017. GI ENDOSCOPY NOTE SURGEON: Jose Leone M.D. HOMICIDE SQUAD LIEUTENANT SURGEON: None. PROCEDURE: Flexible sigmoidoscopy, diagnostic. INDICATION: 1. Rectal bleeding. 2. History of anal cancer, status post surgery and radiation in 2013. MEDICATIONS: See anesthesia record. FINDINGS: After discussion of the risks, benefits and alternatives of the procedure, informed consent was obtained and witnessed. Pre-endoscopic cardiopulmonary examination was satisfactory. Timeout was performed before sedation was achieved. Sedation was achieved with anesthesia assistance in the endoscopy unit. Digital rectal exam was performed. There is mild scarring. The external perianal skin representing post-radiation effect. There is no evidence of ulceration or nodularity in this area. On digital rectal exam, I did not populate any stricture or nodularity. There are some very small external hemorrhoids. A Pentax adult colonoscope was inserted into the anus and passed forward to the descending colon at a distance of 50 cm from the anal verge. It was felt the endoscope was slowly withdrawn in a gradual and circumferential manner with careful examination at the distal part of the descending colon and the entire sigmoid colon and rectum. The quality of the prep was good. The colonic mucosa appeared normal throughout. There was no evidence of any mucosal abnormality in the sigmoid colon or in the rectum on forward or retroflexed views. The colonoscope was then completely withdrawn and the patient allowed to recover. The patient tolerated the procedure well. There were no immediate post-procedure complications. IMPRESSION: 1. Post-radiation scarring of the perianal skin, but no overt evidence of any recurrent malignancy in this area. 2. Small external hemorrhoids. 3. Otherwise, normal flexible sigmoidoscopy to 50 cm examined. RECOMMENDATIONS: 1. The patient can take a stool softener as needed. 2. Follow up with Dr. Elliott as already planned. 3. She can follow up in the GI clinic on an as needed basis. CORRIE
== END 2017-10-21 13:55 | disposition home or self-care (01) ==
LOC: SDC 09:54
PROVIDERS: ATTEND Internal Medicine
PROC: 0DJD8ZZ Inspection of Lower Intestinal Tract, Via Natural or Artificial Opening Endoscopic (ICD-10-PCS; principal; 2017-10-21)
DX: K62.5 Hemorrhage of anus and rectum (principal); K64.4 Residual hemorrhoidal skin tags; D50.9 Iron deficiency anemia, unspecified; Z88.5 Allergy status to narcotic agent; Z85.048 Personal history of other malignant neoplasm of rectum, rectosigmoid junction, and anus; Z92.3 Personal history of irradiation
CPT/HCPCS: J2001; J2250; J2704

== ENCOUNTER 2018-01-06 08:31 | Outpatient (CLI) | payer OTHER ==
[2018-01-06] MEDS ORDERED: Gadobenate Dimeglumine 529 MG/1 ML (20ML VIAL) ONE (09:00)
--- NOTE | 2018-01-06 12:03 | MRI ---
MRI ABDOMEN WITH AND WITHOUT CONTRAST: HISTORY: Right liver lesion seen on prior examination. History of anal cancer. COMPARISON: 04/11/2015 TECHNIQUE: Multiplanar, multisequence MR images obtained of the abdomen with and without IV contrast. FINDINGS: There is significant decreased signal throughout the liver on in and out of phase images, as well as T2 images. This has worsened compared to the prior examination. This is also seen in the spleen but not in the pancreas and can be seen with iron deposition and iron overload. The lesion in the right lobe of the liver has enlarged and now measures approximately 4.9 cm in greatest dimension. It is d ifficult to see the periphery of the mass, which appears circumscribed. The central aspect of the ma ss demonstrates high T2 signal and enhancement. This central portion of the mass measures approximat betlran 3.5 cm in size. This mass is different in appearance than on the prior examination. No other li katelynn masses are seen. No biliary dilatation is present. No significant washout of the area of enhanc ement, in the central portion of the mass, is seen. The gallbladder, kidneys, adrenal glands, and pancreas are unremarkable. No abdominal adenopathy is seen. No marrow signal abnormality is present. IMPRESSION: 1. Enlarging right lobe liver mass. This is atypical and cannot be completely characterized on this examination. This mass has changed in appearance and size, and biopsy is recommended. This does no t have characteristics of a hemangioma. 2. There is low signal intensity in the liver and spleen, which may be secondary to iron deposition/ hemochromatosis/hemosiderosis. CODE T POS: [facility]
== END 2018-01-06 08:32 | disposition home or self-care (01) ==
LOC: SCSMRI 08:31
PROVIDERS: ATTEND Internal Medicine Medical Oncology
DX: R16.0 Hepatomegaly, not elsewhere classified (principal); Z85.048 Personal history of other malignant neoplasm of rectum, rectosigmoid junction, and anus
CPT/HCPCS: 74183; A9579

== ENCOUNTER 2018-04-06 10:47 | Emergency (ER) | payer OTHER ==
[2018-04-06 11:12] LABS: #Eosinphils 0.2 thou/uL (0.0-0.7); #Lymphocytes 1.2 thou/uL (1.20-3.40); #Monocytes 0.1 thou/uL (0.11-0.59); #Neutrophils 2.9 thou/uL (1.40-6.50); %Basophils 0.5 % (0.0-1.0); %Eosinophils 4.3 % (0.0-10.0); %Lymphocytes 26.6 % (21.0-51.0); %Monocytes 2.2 % (0.0-10.0); %Neutrophils 66.4 % (42.0-75.0); Hemoglobin 10.5 g/dL (12.0-16.0); Mean Corpuscular HGB CONC 31.8 g/dL (32.0-36.0); Mean Corpuscular Hemoglobin 28.2 pg (27.0-31.0); Mean Corpuscular Volume 88.7 fL (78.0-98.0); Mean Platelet Volume 6.7 fL (7.4-10.4); Platelet Count 235 thou/uL (130-400); RBC Distribution Width 10.6 % (11.5-14.5); Red Blood Cell (RBC) Count 3.72 mill/uL (4.20-5.40); White Blood Cell (WBC) Count 4.3 thou/uL (4.8-10.8)
[2018-04-06] MEDS ORDERED: Acetaminophen 500 MG TAB ONE (11:12)
[2018-04-06] MEDS ORDERED: Ondansetron PF 4 MG/2 ML Vial ONE (11:13)
[2018-04-06] MEDS ORDERED: Piperacillin/Tazobactam 4.5 GM VIAL ONE (11:19)
[2018-04-06] MEDS ORDERED: Morphine 4 MG/ML VIAL ONE (11:28)
[2018-04-06 11:39] LABS: ALT (SGPT) 19 U/L (8-55); AST (SGOT) 28 U/L (5-34); Albumin 3.9 g/dL (3.5-5.0); Alkaline Phosphatase 103 U/L (40-150); Anion Gap 11 mmol/L (10-20); BUN (Urea Nitrogen) 8 mg/dL (7.0-18.7); Bilirubin, Total 0.4 mg/dL (0.2-1.2); Calc. Creatinine Clearance 0 mL/min (70-130); Calcium 9.3 mg/dL (7.8-10.44); Carbon Dioxide 27 mmol/L (22-29); Chloride 105 mmol/L (98-107); Estimated GFR-MDRD Greater than 90; Globulin 5.5 g/dL (2.4-3.5); Glucose 81 mg/dL (70-105); Potassium 3.1 mmol/L (3.5-5.1); Protein, Total 9.4 g/dL (6.0-8.3); Sodium 140 mmol/L (136-145)
[2018-04-06 11:54] LABS: Bilirubin Negative (Negative); Blood, Urine Negative (Negative); Clarity CLEAR (Clear); Glucose, Urine (Dipstick) Negative (Negative); Leukocyte Moderate (Negative); Nitrite Negative (Negative); Protein, Urine (Dipstick) Negative (Neg-Trace); Specific Gravity, Urine 1.004 (1.002-1.036); Urobilinogen 0.2 mg/dL (0.2-1.0); pH, Urine 7.5 (5.0-9.0)
[2018-04-06 11:56] LABS: Bacteria/HPF None Seen HPF (None Seen); Hyaline Casts/LPF 0-3 HYALINE CAST LPF (0-3 Hyaline); RBC/HPF None Seen HPF (0-3); Squamous Epithelial 0-3 HPF (0-3)
[2018-04-06] MEDS ORDERED: Clindamycin/D5W 900 mg/50 ml Premix Bag ONE (12:04)
--- NOTE | 2018-04-06 13:21 | CT ---
CT ABDOMEN AND PELVIS WITH IV CONTRAST: HISTORY: Pain in the buttock and groin areas. History of anal cancer, status post chemo/radiation. COMPARISON: CT scan from April 2015. CORRELATION: MRI from 01/06/2018. FINDINGS: The lung bases are clear. A heterogeneous mass in segment 6 of the right hepatic lobe is again seen, similar to that on the previous CT scan; however, this is better characterized on the MRI of 018. The spleen, pancreas, adrenal glands, and kidneys are normal. No calcified gallstones are seen . The 6 mm right posterior retroperitoneal lymph node is stable. The left paraaortic lymph node is sma ller and measures 7 mm in short axis diameter. No free air or free fluid is seen in the abdomen or p mer. A uterus is present. There are postop changes of bilateral hip replacement, resulting in art ifact and reduced sensitivity for evaluation of the pelvic contents. No acute osseous abnormalities are seen. The fat-containing lower anterior abdominal wall hernia, in the midline, is stable. IMPRESSION: No acute process. POS: [facility]
[2018-04-06] MEDS ORDERED: ISOVUE-370 76%-LOCM 1 ML ONE (14:20)
== END 2018-04-06 13:48 | disposition home or self-care (01) ==
LOC: ERS 10:47
DX: L03.317 Cellulitis of buttock (principal); L03.314 Cellulitis of groin; M06.9 Rheumatoid arthritis, unspecified; J45.909 Unspecified asthma, uncomplicated
CPT/HCPCS: 51701; 74177; 80053; 81003; 81015; 83605; 85025; 87040; 96365; 96367; 96375; A4353; J2270; J2405; J2543; J3370; J3490

== ENCOUNTER 2018-04-07 07:05 | Inpatient (IN) | payer OTHER ==
[2018-04-07 07:59] LABS: #Eosinphils 0.2 thou/uL (0.0-0.7); #Lymphocytes 0.7 thou/uL (1.20-3.40); #Monocytes 0.2 thou/uL (0.11-0.59); #Neutrophils 2.5 thou/uL (1.40-6.50); %Basophils 0.6 % (0.0-1.0); %Eosinophils 6.2 % (0.0-10.0); %Lymphocytes 18.9 % (21.0-51.0); %Monocytes 4.7 % (0.0-10.0); %Neutrophils 69.6 % (42.0-75.0); Hemoglobin 10.3 g/dL (12.0-16.0); Mean Corpuscular HGB CONC 31.3 g/dL (32.0-36.0); Mean Corpuscular Hemoglobin 27.9 pg (27.0-31.0); Platelet Count 245 thou/uL (130-400); RBC Distribution Width 10.6 % (11.5-14.5); White Blood Cell (WBC) Count 3.7 thou/uL (4.8-10.8)
[2018-04-07 08:26] LABS: ALT (SGPT) 19 U/L (8-55); AST (SGOT) 26 U/L (5-34); Albumin 3.6 g/dL (3.5-5.0); Alkaline Phosphatase 94 U/L (40-150); Anion Gap 11 mmol/L (10-20); BUN (Urea Nitrogen) 6 mg/dL (7.0-18.7); Bilirubin, Total 0.2 mg/dL (0.2-1.2); Calc. Creatinine Clearance 0 mL/min (70-130); Calcium 8.9 mg/dL (7.8-10.44); Carbon Dioxide 22 mmol/L (22-29); Chloride 110 mmol/L (98-107); Estimated GFR-MDRD Greater than 90; Globulin 5.1 g/dL (2.4-3.5); Glucose 100 mg/dL (70-105); Potassium 3.3 mmol/L (3.5-5.1); Protein, Total 8.7 g/dL (6.0-8.3); Sodium 140 mmol/L (136-145)
[2018-04-07] MEDS ORDERED: Morphine 4 MG/ML VIAL ONE (08:46)
[2018-04-07] MEDS ORDERED: diphenhydrAMINE 50 MG/ML VIAL ONE (08:46)
[2018-04-07] MEDS ORDERED: Ondansetron PF 4 MG/2 ML Vial ONE (08:46)
[2018-04-07] MEDS ORDERED: Ondansetron PF 4 MG/2 ML Vial IVP PRN ×2 (09:00→14:31)
[2018-04-07] MEDS ORDERED: Sodium Chloride 0.9% 1,000 ML IV SCH (09:00)
[2018-04-07] MEDS ORDERED: Ondansetron ODT 4 MG TAB SL PRN (09:00)
--- NOTE | 2018-04-07 09:08 | RAD ---
RADIOGRAPH CHEST 1 VIEW: HISTORY: 38-year-old female with dyspnea. FINDINGS: There is no air space density, pulmonary edema, or pneumothorax. The lateral costophrenic angles are sharp. IMPRESSION: No acute pulmonary findings. jn [] POS: [facility]
[2018-04-07] MEDS ORDERED: Piperacillin/Tazobactam 4.5 GM VIAL ONE (09:51)
[2018-04-07 11:13] LABS: Bilirubin Negative (Negative); Blood, Urine Trace (Negative); Glucose, Urine (Dipstick) Negative (Negative); Leukocyte Moderate (Negative); Nitrite Negative (Negative); Protein, Urine (Dipstick) Negative (Neg-Trace); Urobilinogen 0.2 mg/dL (0.2-1.0)
[2018-04-07 11:15] LABS: Clarity Clear (Clear)
[2018-04-07 11:16] LABS: Pregnancy Test - Urine (BHCG) Negative (Negative); Pregu Control Background? CLEAR/WHITE (CLR/WHITE); Pregu Control Bar Appear? YES (CONTROL BAR); Specific Gravity 1.025 (1.002-1.036)
[2018-04-07 11:29] LABS: Bacteria/HPF None Seen HPF (None Seen); Hyaline Casts/LPF 0-3 HYALINE CAST LPF (0-3 Hyaline); RBC/HPF 0-3 HPF (0-3); Squamous Epithelial 0-3 HPF (0-3); WBC/HPF 0-3 HPF (0-3)
[2018-04-07 12:41] VITALS: BMI 31.8
[2018-04-07] MEDS ORDERED: diphenhydrAMINE 50 MG/ML VIAL IVP PRN (13:48)
[2018-04-07] MEDS: diphenhydrAMINE 50 MG/ML VIAL IVP PRN ×2 (13:59→20:50)
[2018-04-07] MEDS ORDERED: Acetaminophen 500 MG TAB PO PRN (14:31)
[2018-04-07] MEDS ORDERED: CELECOXIB PO PRN (14:31)
[2018-04-07] MEDS ORDERED: PROVENTIL INHALER 6.7 G (200 INHALATIONS) INH PRN (14:31)
[2018-04-07] MEDS ORDERED: Mometasone/Formoterol 120 PUFF INHALER INH PRN (14:31)
[2018-04-07] MEDS ORDERED: Ondansetron ODT 4 MG TAB PO PRN (14:31)
[2018-04-07] MEDS: HYDROcodone/Acetaminophen 10/325 mg Tablet PO PRN ×2 (15:06→20:55)
--- NOTE | 2018-04-07 15:23 | HP ---
DATE OF ADMISSION: 04/07/2018 PRIMARY CARE PHYSICIAN: Artemio Gipson M.D. CHIEF COMPLAINT: Buttock and groin pain. HISTORY OF PRESENT ILLNESS: This is a 38-year-old -Honduran female who initially presented to [facility] Emergency Department complaining of pain in the buttock and left groin region. The patient was diagnosed with cellulitis and given intravenous antibiotics and released home. The p atient was given clindamycin, which she apparently took at home, but developed skin rash and hives an d swelling of the face and discontinued the medications. The patient states she initially noticed pa in and swelling in the left buttock region with redness to the skin with some discharge on her underw ear. The patient became concerned when this did not resolve in approximately 48-72 hours. The patie nt denies any prior similar incidences or exposure history. The patient does admit to history of lup us and squamous cell carcinoma of the anus, status post excision and status post chemotherapy. The p atient states the pain and swelling increased in the buttock region as well as the proximal and inner thigh. The patient presented back to the emergency room for evaluation, at which patient received I V vancomycin, Zosyn, morphine sulfate, Benadryl, Zofran and intravenous normal saline. The patient w as transferred to the Medical Oncology unit for further evaluation. PAST MEDICAL HISTORY: 1. Squamous cell carcinoma of the anus, status post excision and radiation and chemotherapy. 2. History of avascular necrosis of bilateral femoral heads, requiring total hip arthroplasty. 3. Lupus, on chronic immunosuppressive therapy. 4. Allergic rhinitis. 5. Eczema. PAST SURGICAL HISTORY: 1. Status post section x4. 2. Status post axillary lymph node biopsy. 3. Status post MediPort placement in the right subclavian with subsequent removal. 4. Status post left total knee, status post bilateral total hip arthroplasty. 5. Status post EGD/colonoscopy. 6. Status post bilateral tubal ligation. 7. Status post post-punch biopsy of perianal skin lesion. CURRENT MEDICATIONS: 1. Buprenorphine 20 mcg 1 patch transdermally every 7 days. 2. Celebrex 200 mg 2 capsules p.o. b.i.d. p.r.n. 3. Dulcolax 100 mg p.o. b.i.d. 4. Prempro 0.625 mg/2.5 mg 1 tab p.o. daily. 5. Feosol 325 mg 1 tab p.o. b.i.d. 6. Neurontin 300 mg p.o. at bedtime. 7. [place] 10/325 mg 1 tab p.o. q.i.d. p.r.n. 8. Dulera 200/5 mcg 2 puffs inhaled b.i.d. p.r.n. 9. CellCept 500 mg p.o. b.i.d. 10. Prednisone 20 mg p.o. daily. 11. Protonix 40 mg p.o. daily. 12. Ventolin HFA 2 puffs inhaled q.6 hours p.r.n. ALLERGIES: CLINDAMYCIN and NAPROXEN. FAMILY HISTORY: Hypertension in her father. SOCIAL HISTORY: The patient is , has 4 children. Resides in [place], [place]. Occasional alcoho l use. No tobacco or illicit drug use. REVIEW OF SYSTEMS: The following complete review of systems was negative except as stated per HPI or below: Constitutional: Weight loss or gain, ability to conduct usual activities. Skin: Rash, itc angelo. Eyes: Double vision, pain. ENT/Mouth: Nose bleeding, neck stiffness, pain, tenderness. Car diovascular: Palpitations, dyspnea on exertion, orthopnea. Respiratory: Shortness of breath, wheez ing, cough, hemoptysis, fever or night sweats. Gastrointestinal: Poor appetite, abdominal pain, hea rtburn, nausea, vomiting, constipation, or diarrhea. Genitourinary: Urgency, frequency, dysuria, no cturia. Musculoskeletal: Pain, swelling. Neurologic/Psychiatric: Anxiety, depression. Allergy/Im munologic: Skin rash, bleeding tendency. PHYSICAL EXAMINATION: VITAL SIGNS: On admission, blood pressure 124/81, pulse 105, respiratory rate 18, temperature 98.8 d egrees Fahrenheit, O2 saturation 96% on room air. GENERAL APPEARANCE: A 38-year-old -Honduran female, alert and oriented x3, pleasant, conversa nt, in no acute distress. HEENT: Pupils are equal, round, and reactive to light and accommodation. Extraocular muscles are in tact. No scleral icterus, no conjunctival injection. Nares patent. OP is clear. Teeth in good rep air. NECK: Supple, no cervical adenopathy, no thyromegaly, no carotid bruits, no JVD appreciated. Cervic al spine with full active and passive range of motion. No meningeal signs appreciated. CHEST: Lungs are clear to auscultation bilaterally. CARDIOVASCULAR: S1, S2, without noted murmur, rub or gallop. ABDOMEN: Rounded, soft, nontender, nondistended. Bowel sounds are positive in all four quadrants. There is no hepatosplenomegaly, no abdominal bruits, no rebound or guarding appreciated. EXTREMITIES: Warm and dry with fair turgor. Positive erythema and tenderness to palpation in the pr oximal thigh greater trochanter on the left region as well as left buttock. Mild firmness to the lef t buttock noted. Indistinct erythematous borders. No asymmetric edema of the lower extremities note d. Pulses are palpable distally at the dorsalis pedis, posterior tibial, and popliteal arteries bila terally. Capillary refill less than 2 seconds. NEUROLOGIC: Cranial nerves II-XII are grossly intact. No focal or lateralizing signs appreciated. PERTINENT LABORATORY AND X-RAY FINDINGS: Sodium 140, potassium 3.3, chloride 110, CO2 of 22, BUN 6, creatinine 0.79, glucose 100, lactic acid level 1.2, calcium 8.9. LFTs within normal limits. Albumi n 3.6. CBC showed a white blood cell count of 3.7, hemoglobin 10, hematocrit 33, platelet count 245 with 70% neutrophils. Urinalysis showed trace blood, moderate leukocyte esterase with negative micro scopy. Urine beta hCG negative on 04/07/2018. CT of the abdomen and pelvis dated 04/06/2018 showed no acute process. Portable chest x-ray dated 04/07/2018 showed no acute cardiopulmonary process. ASSESSMENT AND PLAN: 1. Left buttock and groin cellulitis. The patient will be admitted to the medical oncology unit. W e will continue vancomycin 1 gram IV q.12 hours with additional Zosyn 3.375 grams IV q.6 hours. Pain control as clinically indicated. 2. Hypokalemia. Continue potassium chloride 40 mEq p.o. b.i.d. x2 doses, then repeat potassium leve l in the a.m. 3. Lupus. We will continue home regimen of CellCept 500 mg p.o. b.i.d., and Prednisone 20 mg daily. 4. Normocytic anemia. Appears chronic when reviewing electronic medical record dating back over the last 5 years. No evidence of acute blood loss. Repeat CBC in the a.m. 5. Chronic pain. We will resume home pain regimen to include buprenorphine 1 patch transdermally q. 7 days. Continue [place] 10/325 mg 1 tab p.o. q.i.d. p.r.n. 6. Prophylaxis. Sequential compression devices while in bed. Protonix 40 mg p.o. daily. 7. Code status is full. Surrogate medical decision maker is patient's spouse.
[2018-04-07] MEDS ORDERED: Piperacillin/Tazobactam 4.5 GM in Sodium Chloride 0.9% 100 ML IVPB SCH (16:00)
[2018-04-07] MEDS: Piperacillin/Tazobactam 3.375 GM in Sodium Chloride 0.9% 100 ML IVPB SCH ×2 (16:40→20:57)
[2018-04-07] MEDS: Ferrous Sulfate 325 MG TAB PO SCH (20:54)
[2018-04-07] MEDS: Gabapentin 300 MG CAP PO SCH (20:54)
[2018-04-07] MEDS: Docusate 100 MG CAP PO SCH (20:55)
[2018-04-07] MEDS: Mycophenolate 250 MG CAP PO SCH (20:55)
[2018-04-07] MEDS: Vancomycin HCl 1 GM in Premix Bag 1 BAG IVPB SCH (20:57)
[2018-04-08] MEDS: HYDROcodone/Acetaminophen 10/325 mg Tablet PO PRN ×4 (04:11→22:17)
[2018-04-08] MEDS: diphenhydrAMINE 50 MG/ML VIAL IVP PRN ×4 (04:11→22:18)
[2018-04-08] MEDS: Piperacillin/Tazobactam 3.375 GM in Sodium Chloride 0.9% 100 ML IVPB SCH ×4 (04:13→21:50)
[2018-04-08 05:28] LABS: ALT (SGPT) 14 U/L (8-55); AST (SGOT) 23 U/L (5-34); Alkaline Phosphatase 86 U/L (40-150); Anion Gap 9 mmol/L (10-20); BUN (Urea Nitrogen) Less than 4 mg/dL (7.0-18.7); Band 2 % (5-11); Bilirubin, Total 0.2 mg/dL (0.2-1.2); Calc. Creatinine Clearance 110 mL/min (70-130); Calcium 8.2 mg/dL (7.8-10.44); Carbon Dioxide 23 mmol/L (22-29); Chloride 111 mmol/L (98-107); Estimated GFR-MDRD Greater than 90; Globulin 4.2 g/dL (2.4-3.5); Glucose 97 mg/dL (70-105); Hemoglobin 9.2 g/dL (12.0-16.0); Hypochromia SLIGHT = 6-15 cells (100X) (0-5/hpf); Lymphocytes 18 % (21-51); MDiff Complete? YES; Mean Corpuscular HGB CONC 32.2 g/dL (32.0-36.0); Mean Corpuscular Hemoglobin 28.4 pg (27.0-31.0); Mean Corpuscular Volume 88.4 fL (78.0-98.0); Mean Platelet Volume 6.6 fL (7.4-10.4); Neutrophil 80 % (42-75); PLT Morphology Comment Appears Adequate; Platelet Count 227 thou/uL (130-400); Potassium 3.2 mmol/L (3.5-5.1); Protein, Total 7.2 g/dL (6.0-8.3); RBC Distribution Width 10.4 % (11.5-14.5); Red Blood Cell (RBC) Count 3.23 mill/uL (4.20-5.40); Sodium 140 mmol/L (136-145); White Blood Cell (WBC) Count 2.9 thou/uL (4.8-10.8)
[2018-04-08] MEDS ORDERED: ESTROGEN CON PO SCH (09:00)
[2018-04-08] MEDS ORDERED: M PROGEST ACET PO SCH (09:00)
[2018-04-08] MEDS: predniSONE 20 MG TAB PO SCH (10:09)
[2018-04-08] MEDS: Docusate 100 MG CAP PO SCH ×2 (10:09→22:23)
[2018-04-08] MEDS: Ferrous Sulfate 325 MG TAB PO SCH ×2 (10:09→22:24)
[2018-04-08] MEDS: Mycophenolate 250 MG CAP PO SCH ×2 (10:09→22:23)
[2018-04-08] MEDS: Vancomycin HCl 1 GM in Premix Bag 1 BAG IVPB SCH ×2 (11:00→22:27)
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
[2018-04-08] MEDS ORDERED: Senokot S 8.6-50 MG TAB PO SCH (17:45)
[2018-04-08 21:17] LABS: Vancomycin, Trough 9.9 ug/mL
[2018-04-08] MEDS: Potassium Chloride 20 MEQ TAB PO SCH (22:08)
[2018-04-08] MEDS: Senokot S 8.6-50 MG TAB PO SCH (22:23)
[2018-04-08] MEDS: Gabapentin 300 MG CAP PO SCH (22:23)
[2018-04-09] MEDS: diphenhydrAMINE 50 MG/ML VIAL IVP PRN ×3 (04:17→17:33)
[2018-04-09] MEDS: HYDROcodone/Acetaminophen 10/325 mg Tablet PO PRN ×4 (04:17→18:42)
[2018-04-09] MEDS: Piperacillin/Tazobactam 3.375 GM in Sodium Chloride 0.9% 100 ML IVPB SCH ×2 (04:22→09:52)
[2018-04-09 05:14] LABS: Anion Gap 12 mmol/L (10-20); BUN (Urea Nitrogen) 6 mg/dL (7.0-18.7); Calc. Creatinine Clearance 127 mL/min (70-130); Calcium 8.7 mg/dL (7.8-10.44); Carbon Dioxide 21 mmol/L (22-29); Chloride 110 mmol/L (98-107); Estimated GFR-MDRD Greater than 90; Glucose 91 mg/dL (70-105); Potassium 3.5 mmol/L (3.5-5.1); Sodium 139 mmol/L (136-145)
[2018-04-09 05:52] LABS: Band 7 % (5-11); Eosinophils 2 % (0-10); Lymphocytes 29 % (21-51); MDiff Complete? YES; Mean Corpuscular HGB CONC 31.6 g/dL (32.0-36.0); Mean Corpuscular Hemoglobin 28.1 pg (27.0-31.0); Mean Corpuscular Volume 88.9 fL (78.0-98.0); Mean Platelet Volume 6.7 fL (7.4-10.4); Monocytes 5 % (0-10); Neutrophil 57 % (42-75); PLT Morphology Comment Appears Adequate; Platelet Count 240 thou/uL (130-400); RBC Distribution Width 10.5 % (11.5-14.5); RBC Morphology Normal; Red Blood Cell (RBC) Count 3.21 mill/uL (4.20-5.40)
[2018-04-09] MEDS: Senokot S 8.6-50 MG TAB PO SCH ×2 (09:49→20:08)
[2018-04-09] MEDS: Docusate 100 MG CAP PO SCH ×2 (09:50→20:09)
[2018-04-09] MEDS: Potassium Chloride 20 MEQ TAB PO SCH (09:50)
[2018-04-09] MEDS: predniSONE 20 MG TAB PO SCH (09:50)
[2018-04-09] MEDS: Mycophenolate 250 MG CAP PO SCH ×2 (09:50→20:09)
[2018-04-09] MEDS: Ferrous Sulfate 325 MG TAB PO SCH ×2 (09:50→20:09)
[2018-04-09] MEDS: Vancomycin HCl 1 GM in Premix Bag 1 BAG IVPB SCH (10:52)
[2018-04-09] MEDS ORDERED: hydrOXYzine 25 MG TAB PO PRN (11:06)
[2018-04-09] MEDS ORDERED: Sulfameth/Trimethoprim DS 800-160mg TAB PO SCH (11:15)
[2018-04-09] MEDS ORDERED: Hydrocortisone Acetate 25 MG Suppository PR PRN (11:40)
--- NOTE | 2018-04-09 11:54 | PDOC.PN ---
- Subjective Encounter Start Date: 04/09/18 Encounter Start Time: 07:00 Pt seen for followup re: cellulitis. Denies chest pain. Reports itching over hands and thighs. No fevers or chills. - Objective Resuscitation Status: Resuscitation Status FULL:Full Resuscitation MAR Reviewed: Yes Vital Signs & Weight: Vital Signs (12 hours) Temp Pulse Resp BP Pulse Ox 04/09/18 07:51 93 L 04/09/18 07:49 97.9 F 97 18 136/99 H 93 L Weight Admit Weight 168 lb 6 oz Weight 168 lb 6 oz I&O: 04/08/18 04/09/18 04/10/18 06:59 06:59 05:59 Intake Total 955 1400 Balance 955 1400 Result Diagrams: 04/09/18 04:41 04/09/18 04:41 Additional Labs: Labs reviewed by me Phys Exam - Physical Examination Obese HEENT: moist MMs, sclera anicteric, oral pharynx no lesions, 2+ tonsils Neck: no nodes, no JVD, supple, full ROM Respiratory: no wheezing, no rales, no rhonchi, clear to auscultation bilateral Cardiovascular: RRR, no rub S1, S2 Gastrointestinal: soft, non-tender, no distention, positive bowel sounds Neurological: moves all 4 limbs Psychiatric: normal affect, A&O x 3 Deviation from normal: Urticarial lesions over both hands and thighs Dx/Plan (1) Cellulitis of left buttock Code(s): L03.317 - CELLULITIS OF BUTTOCK Status: Acute Comment: Unclear whether true cellulitis vs. urticaria. Pt reports itching, no burning or pain. Will change antibiotics to oral and oberve, follow cultures. (2) Urticaria Code(s): L50.9 - URTICARIA, UNSPECIFIED Status: Acute Comment: start Atarax , continue Benadryl (3) GERD (gastroesophageal reflux disease) Code(s): K21.9 - GASTRO-ESOPHAGEAL REFLUX DISEASE WITHOUT ESOPHAGITIS Status: Chronic Qualifiers: Comment: stable, continue Protonix (4) Lupus (systemic lupus erythematosus) Code(s): M32.9 - SYSTEMIC LUPUS ERYTHEMATOSUS, UNSPECIFIED Status: Chronic Comment: Stable, continue Cellcept/Prednisone - Plan * . Review of Systems - Review of Systems Constitutional: other (Itching). negative: fever, chills, sweats, weakness, malaise Respiratory: negative: Cough, Shortness of Breath, SOB with Excertion, Pleuritic Pain, Wheezing Cardiovascular: negative: chest pain, palpitations, orthopnea, paroxysmal nocturnal dyspnea, edema, light headedness Gastrointestinal: negative: Nausea, Vomiting, Abdominal Pain, Diarrhea, Constipation, Melena, Hematochezia Genitourinary: negative: Dysuria, Frequency, Incontinence, Hematuria, Retention Skin: Rash, Lesions. negative: Levi, Bruising - Medications/Allergies Allergies/Adverse Reactions: Allergies Allergy/AdvReac Type Severity Reaction Status Date / Time clindamycin Allergy Intermediate Rash Verified 04/07/18 12:02 naproxen [From Aleve] Allergy Intermediate Swollen Verified 04/07/18 12:02 Lips Medications: Current Medications Acetaminophen (Tylenol) 1,000 mg PO Q6H PRN PRN Reason: Mild Pain (1-3) Hydrocodone Bitart/Acetaminophen ([place] 10/325) 1 tab PO QID PRN PRN Reason: Severe Pain (7-10) Last Admin: 04/09/18 09:52 Dose: 1 tab Albuterol Sulfate (Proventil Hfa) 2 puff INH Q6HR PRN PRN Reason: SOB &/or Wheezing Diphenhydramine HCl (Benadryl) 25 mg IVP Q6H PRN PRN Reason: Itching Last Admin: 04/09/18 10:48 Dose: 25 mg Docusate Sodium (Colace) 100 mg PO BID [facility] Last Admin: 04/09/18 09:50 Dose: 100 mg Ferrous Sulfate (Feosol) 325 mg PO BID [facility] Last Admin: 04/09/18 09:50 Dose: 325 mg Gabapentin (Neurontin) 300 mg PO HS [facility] Last Admin: 04/08/18 22:23 Dose: 300 mg Hydrocortisone Acetate (Anusol-Hc) 25 mg [place] Q6H PRN PRN Reason: HEMMORHOIDS Hydroxyzine HCl (Atarax) 25 mg PO Q8H PRN PRN Reason: Itching Mometasone Furoate/Formoterol Fumar (Dulera 200 Mcg/5 Mcg Inhaler) 2 puff INH BID PRN PRN Reason: Wheezing Mycophenolate Mofetil (Cellcept) 500 mg PO BID [facility] Last Admin: 04/09/18 09:50 Dose: 500 mg Non-Formulary Medication (Celecoxib [Celebrex]) 2 cap PO BID PRN PRN Reason: Mild Pain (1-3) 2ND LINE Ondansetron HCl (Zofran Odt) 4 mg PO Q6H PRN PRN Reason: Nausea/Vomiting Ondansetron HCl (Zofran) 4 mg IVP Q6H PRN PRN Reason: Nausea/Vomiting Pantoprazole Sodium (Protonix) 40 mg PO 2100 [facility] Last Admin: 04/08/18 22:23 Dose: 40 mg Buprenorphine [ (Butrans] 1 Patch) 1 each TOP Q7D@0900 [facility] Estrogen,Con/M- Progest Acet [ Prempro] 1 Tab 1 each PO DAILY [facility] Prednisone (Prednisone) 20 mg PO DAILY [facility] Last Admin: 04/09/18 09:50 Dose: 20 mg Senna/Docusate Sodium (Senokot S) 1 tab PO BID [facility] Last Admin: 04/09/18 09:49 Dose: 1 tab Trimethoprim/Sulfamethoxazole (Bactrim Ds) 1 tab PO BID [facility] Trimethoprim/Sulfamethoxazole (Bactrim Ds) 1 tab PO ONE [facility] Stop: 04/09/18 13:00
[2018-04-09] MEDS: Gabapentin 300 MG CAP PO SCH (20:09)
[2018-04-09] MEDS: Sulfameth/Trimethoprim DS 800-160mg TAB PO SCH (20:09)
[2018-04-09 20:22] VITALS: TEMP 98.3
[2018-04-10] MEDS: HYDROcodone/Acetaminophen 10/325 mg Tablet PO PRN ×3 (00:55→11:37)
[2018-04-10] MEDS: diphenhydrAMINE 50 MG/ML VIAL IVP PRN ×2 (00:55→08:02)
[2018-04-10] MEDS: Docusate 100 MG CAP PO SCH (08:02)
[2018-04-10] MEDS: Mycophenolate 250 MG CAP PO SCH (08:02)
[2018-04-10] MEDS: Ferrous Sulfate 325 MG TAB PO SCH (08:02)
[2018-04-10] MEDS: predniSONE 20 MG TAB PO SCH (08:02)
[2018-04-10] MEDS: Sulfameth/Trimethoprim DS 800-160mg TAB PO SCH (08:02)
[2018-04-10] MEDS: Senokot S 8.6-50 MG TAB PO SCH (08:02)
[2018-04-10 08:31] LABS: #Eosinphils 0.2 thou/uL (0.0-0.7); #Lymphocytes 0.7 thou/uL (1.20-3.40); #Monocytes 0.2 thou/uL (0.11-0.59); #Neutrophils 2.8 thou/uL (1.40-6.50); %Basophils 0.1 % (0.0-1.0); %Eosinophils 5.8 % (0.0-10.0); %Lymphocytes 18.6 % (21.0-51.0); %Monocytes 3.8 % (0.0-10.0); %Neutrophils 71.8 % (42.0-75.0); Hemoglobin 9.1 g/dL (12.0-16.0); Mean Corpuscular HGB CONC 32.5 g/dL (32.0-36.0); Mean Corpuscular Hemoglobin 28.5 pg (27.0-31.0); Mean Corpuscular Volume 87.7 fL (78.0-98.0); Mean Platelet Volume 6.3 fL (7.4-10.4); Platelet Count 265 thou/uL (130-400); RBC Distribution Width 10.5 % (11.5-14.5); Red Blood Cell (RBC) Count 3.19 mill/uL (4.20-5.40); White Blood Cell (WBC) Count 3.9 thou/uL (4.8-10.8)
[2018-04-10 08:35] LABS: Anion Gap 10 mmol/L (10-20); BUN (Urea Nitrogen) 9 mg/dL (7.0-18.7); Calc. Creatinine Clearance 132 mL/min (70-130); Calcium 8.8 mg/dL (7.8-10.44); Carbon Dioxide 25 mmol/L (22-29); Chloride 108 mmol/L (98-107); Estimated GFR-MDRD Greater than 90; Glucose 87 mg/dL (70-105); Potassium 3.2 mmol/L (3.5-5.1); Sodium 140 mmol/L (136-145)
[2018-04-10 08:41] VITALS: BP 136/88
[2018-04-10] MEDS ORDERED: Potassium Chloride 20 MEQ TAB PO SCH (09:15)
[2018-04-10] MEDS ORDERED: CeleCOXIB 100 MG CAP PO PRN (11:02)
--- NOTE | 2018-04-10 18:10 | DIS ---
DATE OF ADMISSION: 04/07/2018 DATE OF DISCHARGE: 04/10/2018 PRIMARY CARE PHYSICIAN: Artemio Gipson M.D. DISCHARGE DIAGNOSES: 1. Cellulitis. 2. Allergic reaction. 3. Hives. CONDITION OF THE PATIENT ON THE DAY OF DISCHARGE: Stable. I assessed Ms. Walker on the day of discharge. She denies any chest pain or shortness of breath. Sh e reports that itching has improved. She denies any rash. Vital signs are stable. S1 and S2 are he ophelia, regular. Lungs are clear to auscultation bilaterally. DISCHARGE MEDICATIONS: She is being discharged on double strength trimethoprim/sulfamethoxazole for 4 more days. She is also advised to take [id number] Benadryl as needed. Otherwise, no change was made to her preadmission home medications as dictated on Dr. Carney's history and physical note ginna ed April 07, 2018. HOSPITAL COURSE: Ms. Walker is a pleasant 38-year-old lady who was admitted to [facility] on April 07, 2018, for cellulitis. Please refer to Dr. Carney's history and physical no te dated April 07, 2018, for further details. She did not have erythema when I assumed her care on April 08, 2018. She appeared to have hives. Intravenous antibiotics were discontinued, and she w as started on Septra for suspected cellulitis on April 09, 2018. She had urinalysis that was positive for leukocyte esterase. However, she did not have any urinary s ymptoms. At the time of this dictation, blood cultures are pending. She is advised to follow up wit h her primary care provider for final blood cultures report. She improved clinically. She is afebrile. She has occasional episodes of tachycardia but she report s that she has always had that. On the day of discharge, she has white count 3900, hemoglobin 9.1, platelet count 265,000. Sodium 14 0, potassium 3.2, which is being replaced, and creatinine 0.71. Many thanks for allowing me to participate in your patient's care. Please feel free to contact me wi th any questions or concerns. DISCHARGE DESTINATION: Home. TOTAL AMOUNT OF TIME SPENT COORDINATING THIS DISCHARGE: 32 minutes.
[2018-04-14] MEDS ORDERED: Buprenorphine [Butrans] 1 PATCH TOP SCH (09:00)
== END 2018-04-10 12:15 | disposition home or self-care (01) | DRG 603 ==
LOC: ERS 07:05 → ONC 11:32
PROVIDERS: ADMIT Family Medicine; ATTEND Family Medicine
DX: L03.317 Cellulitis of buttock (principal); L03.314 Cellulitis of groin; Z85.048 Personal history of other malignant neoplasm of rectum, rectosigmoid junction, and anus; M32.9 Systemic lupus erythematosus, unspecified; Z96.643 Presence of artificial hip joint, bilateral; Z96.652 Presence of left artificial knee joint; Z82.49 Family history of ischemic heart disease and other diseases of the circulatory system; E87.6 Hypokalemia; D64.9 Anemia, unspecified; G89.29 Other chronic pain; K59.00 Constipation, unspecified; L50.9 Urticaria, unspecified; K21.9 Gastro-esophageal reflux disease without esophagitis; Y92.239 Unspecified place in hospital as the place of occurrence of the external cause; T36.95XA Adverse effect of unspecified systemic antibiotic, initial encounter
CPT/HCPCS: 36415; 51701; 71045; 74177; 80048; 80053; 80202; 81003; 81015; 81025; 83605; 85007; 85025; 85027; 87040; 94640; 96361; 96365; 96367; 96375; A4353; J1200; J2270; J2405; J2543; J3370; J3490; J7050; J7506; J7517; J7620

== ENCOUNTER 2018-07-20 15:09 | Outpatient (CLI) | payer OTHER ==
--- NOTE | 2018-07-20 15:51 | RAD ---
RIGHT KNEE RADIOGRAPHS 4 VIEWS: DATE: 07/20/2018. PROVIDED CLINICAL HISTORY: Knee pain. FINDINGS: There is no evidence for a fracture or other acute osseous abnormality. Alignment appears anatomic. Joint spaces appear preserved. No evidence for significant knee joint capsular distention. IMPRESSION: Unremarkable right knee radiographs. POS: [facility]
--- NOTE | 2018-07-20 15:53 | RAD ---
LEFT KNEE RADIOGRAPHS FOUR VIEWS: 07/20/18 PROVIDED CLINICAL HISTORY: Left knee pain. FINDINGS: No evidence for fracture or other acute osseous abnormality. Alignment appears anatomic. Joint spaces appear preserved. No evidence for significant knee joint capsular distention. IMPRESSION: Unremarkable left knee radiographs. POS: [facility]
== END 2018-07-20 15:10 | disposition home or self-care (01) ==
LOC: BICRAD 15:09
PROVIDERS: ATTEND Internal Medicine Rheumatology
DX: M25.462 Effusion, left knee (principal); M79.605 Pain in left leg; M32.9 Systemic lupus erythematosus, unspecified; D50.9 Iron deficiency anemia, unspecified
CPT/HCPCS: 36415; 80053; 81001; 82570; 84156; 85025; 85652; 86140; 86160

== ENCOUNTER 2019-03-02 13:36 | Outpatient (CLI) | payer OTHER ==
--- NOTE | 2019-03-02 15:12 | RAD ---
LEFT HIP 2 VIEWS: Date: 03/02/19 INDICATION: History of left hip effusion. COMPARISON: 03/29/17. FINDINGS: There is a left total hip prosthesis that projects in the expected position. No acute osseous abnorma lity is evident. IMPRESSION: No acute abnormality. Stable left hip prosthesis. POS: [facility]
== END 2019-03-02 13:37 | disposition home or self-care (01) ==
LOC: BICRAD 13:36
PROVIDERS: ATTEND Internal Medicine Rheumatology
DX: M25.452 Effusion, left hip (principal); Z96.642 Presence of left artificial hip joint

== ENCOUNTER 2020-05-06 11:17 | Emergency (ER) | payer OTHER ==
[~2020-05-06 11:17] MED LIST changes: +Iopamidol 370 76% 100 ML VIAL ONE; -Lidocaine 1% PF 5 ML VIAL ONE; -PROPOFOL 200 MG/20 ML VIAL ONE
[2020-05-06] MEDS ORDERED: Dexamethasone 4 mg/ml Vial ONE (11:40)
[2020-05-06] MEDS ORDERED: Ondansetron PF 4 MG/2 ML Vial ONE (11:40)
[2020-05-06] MEDS ORDERED: Albuterol 200 PUFF (6.7GM INHALER) ONE (11:43)
[2020-05-06 12:06] LABS: #Eosinphils 0.1 thou/uL (0.0-0.7); #Lymphocytes 0.9 thou/uL (1.20-3.40); #Monocytes 0.2 thou/uL (0.11-0.59); #Neutrophils 1.7 thou/uL (1.40-6.50); %Basophils 0.8 % (0.0-1.0); %Eosinophils 3.3 % (0.0-10.0); %Lymphocytes 31.3 % (21.0-51.0); %Monocytes 5.3 % (0.0-10.0); %Neutrophils 59.2 % (42.0-75.0); Mean Corpuscular HGB CONC 32.5 g/dL (32.0-36.0); Mean Corpuscular Hemoglobin 27.2 pg (27.0-31.0); Mean Corpuscular Volume 83.7 fL (78.0-98.0); Mean Platelet Volume 7.5 fL (7.4-10.4); Platelet Count 217 thou/uL (130-400); RBC Distribution Width 11.2 % (11.5-14.5); Red Blood Cell (RBC) Count 4.02 mill/uL (4.20-5.40); White Blood Cell (WBC) Count 2.9 thou/uL (4.8-10.8)
--- NOTE | 2020-05-06 12:20 | RAD ---
PORTABLE CHEST; Date: 05/06/2020 PROVIDED CLINICAL HISTORY: Shortness of breath. Cough. FINDINGS: Comparison made with 06/26/2017. The cardiac and mediastinal silhouette is within normal limits. No focal consolidation, pleural fluid , or pneumothorax apparent. IMPRESSION: No evidence for acute cardiopulmonary process. POS: [facility]
[2020-05-06 12:37] LABS: ALT (SGPT) 26 U/L (8-55); AST (SGOT) 47 U/L (5-34); Albumin 3.8 g/dL (3.5-5.0); Alkaline Phosphatase 115 U/L (40-110); Anion Gap 13 mmol/L (10-20); BUN (Urea Nitrogen) 15 mg/dL (7.0-18.7); Bilirubin, Total 0.2 mg/dL (0.2-1.2); Calc. Creatinine Clearance 0 mL/min (70-130); Calcium 8.9 mg/dL (7.8-10.44); Carbon Dioxide 24 mmol/L (22-29); Chloride 108 mmol/L (98-107); Estimated GFR-MDRD Greater than 90; Glucose 87 mg/dL (70-105); Potassium 4.6 mmol/L (3.5-5.1); Protein, Total 9.8 g/dL (6.0-8.3); Sodium 140 mmol/L (136-145)
--- NOTE | 2020-05-06 13:29 | CT ---
Exam: CT angiogram of the chest HISTORY: COVID positive patient. Chest pain and pressure. Chest tightness. Cough and shortness of brisa ath. COMPARISON: None TECHNIQUE: CT angiogram of the chest is performed in the axial plane. Three-dimensional reformatted i mages are submitted for interpretation FINDINGS: Mediastinum: No mass, lymphadenopathy or hematoma. Lower neck and axilla: There are enlarged bilateral axillary lymph nodes. [employer] right axilla ry lymph node measures 2.0 x 0.9 cm. Heart: Normal size. No significant pericardial fluid. Aorta: No aneurysm or dissection Upper solid abdominal viscera: No abnormality enhancement. Trachea and central bronchi: Patent Pleural spaces: No effusion Lung parenchyma: Peripheral groundglass opacities. Pneumothorax: None Osseous structures: No lytic or blastic lesions Pulmonary arteries: Adequate contrast opacification pulmonary arterial system to the level of segment al arteries. No filling defect to suggest pulmonary embolism IMPRESSION: 1. No evidence of pulmonary artery embolism to the level segmental arteries 2. Multiple peripheral groundglass opacities, consistent with patient's history of COVID 19. 3. Bilateral axillary lymphadenopathy.
--- NOTE | 2020-05-11 15:05 | EKG ---
Test Reason : Blood Pressure : / mmHG Vent. Rate : 101 BPM Atrial Rate : 101 BPM P-R Int : 132 ms QRS Dur : 086 ms QT Int : 344 ms P-R-T Axes : 047 022 022 degrees QTc Int : 446 ms Sinus tachycardia Septal infarct , age undetermined Abnormal ECG Confirmed by MILLICENT AGUERO M.D. ([id number]), international editorial producer SCOTTIE CORNEJO ([id number]) on 05/11/2020 3:05:23 PM Referred By: Confirmed By:MILLICENT AGUERO M.D.
== END 2020-05-06 14:41 | disposition home or self-care (01) ==
LOC: ERS 11:17
DX: U07.1 COVID-19 (principal); M06.9 Rheumatoid arthritis, unspecified
CPT/HCPCS: 71045; 71275; 80053; 84443; 85025; 85379; 93005; 96374; 96375; J1100; J2405; Q9967

== ENCOUNTER 2020-11-29 07:53 | Outpatient (CLI) | payer OTHER | END 2020-11-29 07:54 | disposition home or self-care (01) | LOC: TBSIIMAG 07:53 | PROVIDERS: ATTEND Family Medicine | DX: S39.012D Strain of muscle, fascia and tendon of lower back, subsequent encounter (principal); M51.37 Other intervertebral disc degeneration, lumbosacral region; M48.07 Spinal stenosis, lumbosacral region | CPT/HCPCS: 72148 ==

== ENCOUNTER 2021-02-19 21:41 | Emergency (ER) | payer OTHER ==
[2021-02-20] MEDS ORDERED: Acetaminophen/Codeine 30-300mg Tablet ONE (00:07)
== END 2021-02-20 00:13 | disposition home or self-care (01) ==
LOC: ERS 21:41
DX: L03.116 Cellulitis of left lower limb (principal); R60.0 Localized edema

== ENCOUNTER 2021-05-15 07:55 | Emergency (ER) | payer OTHER, SELFPAY ==
[2021-05-15] MEDS ORDERED: predniSONE 20 MG TAB ONE (08:48)
== END 2021-05-15 09:45 | disposition home or self-care (01) ==
LOC: ERS 07:55
DX: J45.901 Unspecified asthma with (acute) exacerbation (principal); L03.116 Cellulitis of left lower limb; Z79.899 Other long term (current) drug therapy
CPT/HCPCS: 94640; J7512; J7620

== ENCOUNTER 2021-06-18 14:56 | Outpatient (CLI) | payer OTHER ==
[2021-06-18 16:30] LABS: Hemoglobin 9.2 g/dL (12.0-15.5); Mean Corpuscular HGB CONC 31.1 g/dL (32.0-36.0); Mean Corpuscular Hemoglobin 27.5 pg (27.0-33.0); Mean Corpuscular Volume 88.4 fl (81.6-98.3); Mean Platelet Volume 9.9 fl (7.4-10.4); Platelet Count 283 10x3/uL (150-450); RBC Distribution Width 13.3 % (11.5-14.5); Red Blood Cell (RBC) Count 3.35 10x6/uL (3.90-5.03); White Blood Cell (WBC) Count 4.8 10x3/uL (3.5-10.5)
[2021-06-18 16:39] LABS: Anion Gap 15 mmol/L (10-20); BUN (Urea Nitrogen) 21 mg/dL (7.0-18.7); Calc. Creatinine Clearance 0 mL/min (70-130); Carbon Dioxide 25 mmol/L (22-29); Chloride 104 mmol/L (98-107); Glucose 93 mg/dL (70-105); Potassium 3.8 mmol/L (3.5-5.1); Sodium 140 mmol/L (136-145)
[2021-06-19 13:39] LABS: SARS-CoV-2 PCR by NAA Not Detected (NotDetected)
== END 2021-06-18 14:57 | disposition home or self-care (01) ==
LOC: LABBT 14:56
PROVIDERS: ATTEND Neurological Surgery
DX: Z01.812 Encounter for preprocedural laboratory examination (principal); M54.16 Radiculopathy, lumbar region; Z20.822 Contact with and (suspected) exposure to COVID-19
CPT/HCPCS: 80048; 85027; 93005; 93010; U0003; U0005

== ENCOUNTER 2021-06-23 05:58 | Day surgery (SDC) | payer OTHER ==
[2021-06-16 12:24] VITALS: BMI 36.2
[2021-06-23] MEDS ORDERED: Fentanyl 100 MCG/2 ML VIAL ONE ×4 (07:15→10:53)
[2021-06-23] MEDS ORDERED: Midazolam HCl 2 mg/2 ml Vial ONE (07:15)
[2021-06-23] MEDS ORDERED: Albuterol Sulfate HFA (OR ONLY) ONE (07:16)
[2021-06-23] MEDS ORDERED: HYDROmorphone 0.5 MG/0.5 ML SYRINGE ONE ×2 (07:16→10:49)
[2021-06-23] MEDS ORDERED: Lidocaine 1% PF 5 ML VIAL ONE (07:28)
[2021-06-23] MEDS ORDERED: Dexamethasone 20 MG/5 ML VIAL ONE (07:28)
[2021-06-23] MEDS ORDERED: PROPOFOL 200 MG/20 ML VIAL ONE (07:28)
[2021-06-23] MEDS ORDERED: Ondansetron PF 4 MG/2 ML Vial ONE (07:28)
[2021-06-23] MEDS ORDERED: PHENYLEPHRINE-NS 100 MCG/ML 10 ML SYRINGE ONE (07:28)
[2021-06-23] MEDS ORDERED: Ketorolac Tromethamine 30 MG/ML VIAL ONE (07:28)
[2021-06-23] MEDS ORDERED: Glycopyrrolate 0.2 MG/ML 5 ML SYRINGE ONE (07:28)
[2021-06-23] MEDS ORDERED: Esmolol 100 MG/10 ML VIAL ONE (07:28)
[2021-06-23] MEDS ORDERED: Sodium Chloride For Inhalation 0.9% 3 ML NEB ONE (09:17)
[2021-06-23] MEDS ORDERED: Cyclobenzaprine 10 MG TAB ONE (11:38)
[2021-06-23] MEDS ORDERED: HYDROcodone/Acetaminophen 5/325 mg Tablet ONE (11:38)
== END 2021-06-23 12:32 | disposition home or self-care (01) ==
LOC: SDC 05:58
PROVIDERS: ATTEND Neurological Surgery
PROC: 0SG30AJ Fusion of Lumbosacral Joint with Interbody Fusion Device, Posterior Approach, Anterior Column, Open Approach (ICD-10-PCS; principal; 2021-06-23)
DX: M51.17 Intervertebral disc disorders with radiculopathy, lumbosacral region (principal); Z85.048 Personal history of other malignant neoplasm of rectum, rectosigmoid junction, and anus; Z79.818 Long term (current) use of other agents affecting estrogen receptors and estrogen levels; Z88.1 Allergy status to other antibiotic agents; Z88.6 Allergy status to analgesic agent
CPT/HCPCS: 76000; C1713; C1768; C1776; J1100; J1170; J1885; J2250; J2405; J2704; J3010; J3370; J7620

== ENCOUNTER 2021-07-13 08:25 | Observation (INO) | payer BC, OTHER ==
[2021-07-13 08:55] LABS: #Eosinphils 0.1 thou/uL (0.0-0.7); #Lymphocytes 1.5 thou/uL (1.20-3.40); #Monocytes 0.3 thou/uL (0.11-0.59); #Neutrophils 3.2 thou/uL (1.40-6.50); %Basophils 0.8 % (0.0-1.0); %Eosinophils 1.3 % (0.0-10.0); %Lymphocytes 29.8 % (21.0-51.0); %Monocytes 5.9 % (0.0-10.0); %Neutrophils 62.2 % (42.0-75.0); Hemoglobin 9.4 g/dL (12.0-16.0); Mean Corpuscular HGB CONC 32.1 g/dL (32.0-36.0); Mean Corpuscular Hemoglobin 27.1 pg (27.0-31.0); Mean Corpuscular Volume 84.5 fL (78.0-98.0); Mean Platelet Volume 6.9 fL (7.4-10.4); Platelet Count 351 thou/uL (130-400); RBC Distribution Width 12.2 % (11.5-14.5); Red Blood Cell (RBC) Count 3.47 mill/uL (4.20-5.40); White Blood Cell (WBC) Count 5.1 thou/uL (4.8-10.8)
[2021-07-13 09:15] LABS: ALT (SGPT) 28 U/L (8-55); AST (SGOT) 56 U/L (5-34); Alkaline Phosphatase 113 U/L (40-110); Anion Gap 12 mmol/L (10-20); BUN (Urea Nitrogen) 16 mg/dL (7.0-18.7); Bilirubin, Total 0.3 mg/dL (0.2-1.2); Calc. Creatinine Clearance 0 mL/min (70-130); Calcium 9.4 mg/dL (7.8-10.44); Carbon Dioxide 26 mmol/L (22-29); Chloride 104 mmol/L (98-107); Globulin 5.1 g/dL (2.4-3.5); Glucose 86 mg/dL (70-105); Potassium 3.5 mmol/L (3.5-5.1); Protein, Total 9.1 g/dL (6.0-8.3); Sodium 138 mmol/L (136-145)
[2021-07-13] MEDS ORDERED: Clopidogrel Bisulfate 75 MG TAB ONE (11:18)
[2021-07-13 12:49] LABS: Bilirubin Negative (Negative); Blood, Urine Negative (Negative); Clarity Clear (Clear); Glucose, Urine (Dipstick) Normal (Negative); Ketone, Urine Negative (Negative); Leukocyte Negative Leu/uL (Negative); Nitrite Negative (Negative); Protein, Urine (Dipstick) 10 mg/dL (Neg-Trace); Specific Gravity, Urine 1.018 (1.002-1.036); Urobilinogen Normal mg/dL (Less than 2); pH, Urine 6.5 (5.0-9.0)
[2021-07-13] MEDS ORDERED: hydrALAZINE 20 MG/ML VIAL SLOW IVP PRN (14:58)
[2021-07-13 14:59] LABS: SARS-CoV-2 NAA Rapid Test Not Detected (NotDetected)
[2021-07-13] MEDS ORDERED: Senokot S 8.6-50 MG TAB PO PRN (15:13)
[2021-07-13] MEDS ORDERED: Ondansetron ODT 4 MG TAB PO PRN (15:13)
[2021-07-13] MEDS ORDERED: Acetaminophen 325 MG TAB PO PRN (15:13)
[2021-07-13] MEDS ORDERED: HYDROcodone/Acetaminophen 10/325 mg Tablet ONE (15:15)
[2021-07-13] MEDS ORDERED: HYDROcodone/Acetaminophen 5/325 mg Tablet PO PRN (15:41)
[2021-07-13 15:54] LABS: Pregnancy Test - Urine (BHCG) Negative (Negative); Pregu Control Background? CLEAR/WHITE (CLR/WHITE); Pregu Control Bar Appear? YES (CONTROL BAR); Specific Gravity 1.018 (1.002-1.036)
[2021-07-13] MEDS ORDERED: ALPRAZolam 0.25 MG TAB PO PRN (18:10)
[2021-07-13] MEDS ORDERED: Albuterol Sulfate 2.5 mg/3 ml Neb NEB PRN (18:25)
[2021-07-13 19:32] VITALS: BMI 35.9
[2021-07-13] MEDS: buPROPion HCl 100 MG TAB PO SCH (20:51)
[2021-07-13] MEDS: Atorvastatin Calcium 40 MG TAB PO SCH (20:51)
[2021-07-13] MEDS: HYDROcodone/Acetaminophen 10/325 mg Tablet PO PRN (20:52)
[2021-07-13] MEDS ORDERED: Hydroxychloroquine Sulfate 200 MG TAB PO SCH (21:00)
[2021-07-13] MEDS ORDERED: buPROPion 75 MG TAB PO SCH (21:00)
[2021-07-13] MEDS ORDERED: Bupropion 150 MG XL TAB PO SCH (21:00)
[2021-07-14] MEDS ORDERED: Gabapentin 100 MG CAP PO SCH (02:02)
[2021-07-14] MEDS: HYDROcodone/Acetaminophen 10/325 mg Tablet PO PRN ×4 (03:12→19:36)
[2021-07-14] MEDS ORDERED: tiZANidine HCl 4 MG TAB PO SCH (06:00)
[2021-07-14 06:45] LABS: Anion Gap 17 mmol/L (10-20); BUN (Urea Nitrogen) 16 mg/dL (7.0-18.7); Calc. Creatinine Clearance 138 mL/min (70-130); Calcium 8.8 mg/dL (7.8-10.44); Carbon Dioxide 21 mmol/L (22-29); Cardiac Risk 4.9 (Less than 4.5); Chloride 107 mmol/L (98-107); Cholesterol 163 mg/dl (< 200 Desired); Glucose 81 mg/dL (70-105); HDL Cholesterol 33 mg/dL (>60 Neg Risk); LDL Cholesterol, Calculated 98 mg/dL; Magnesium 2.1 mg/dL (1.6-2.6); Sodium 141 mmol/L (136-145); Triglycerides 160 mg/dL (Less than 150)
[2021-07-14 06:55] LABS: #Eosinphils 0.2 thou/uL (0.0-0.7); #Lymphocytes 1.5 thou/uL (1.20-3.40); #Monocytes 0.3 thou/uL (0.11-0.59); #Neutrophils 2.1 thou/uL (1.40-6.50); %Basophils 0.7 % (0.0-1.0); %Eosinophils 3.9 % (0.0-10.0); %Lymphocytes 36.2 % (21.0-51.0); %Monocytes 7.3 % (0.0-10.0); %Neutrophils 51.8 % (42.0-75.0); Hemoglobin 9.4 g/dL (12.0-16.0); Mean Corpuscular HGB CONC 32.8 g/dL (32.0-36.0); Mean Corpuscular Hemoglobin 27.3 pg (27.0-31.0); Mean Corpuscular Volume 83.1 fL (78.0-98.0); Mean Platelet Volume 6.7 fL (7.4-10.4); Platelet Count 324 thou/uL (130-400); Red Blood Cell (RBC) Count 3.46 mill/uL (4.20-5.40); White Blood Cell (WBC) Count 4.1 thou/uL (4.8-10.8)
[2021-07-14] MEDS: Citalopram 20 MG TAB PO SCH (08:34)
[2021-07-14] MEDS: Clopidogrel Bisulfate 75 MG TAB PO SCH (08:34)
[2021-07-14] MEDS: Hydroxychloroquine Sulfate 200 MG TAB PO SCH (08:34)
[2021-07-14] MEDS: buPROPion HCl 100 MG TAB PO SCH ×3 (08:34→21:11)
[2021-07-14] MEDS ORDERED: Clopidogrel Bisulfate 75 MG TAB PO SCH (09:00)
[2021-07-14 10:40] LABS: Vitamin B12 Greater than 2000 pg/mL (211-911)
[2021-07-14] MEDS ORDERED: Amlodipine 5 MG TAB PO SCH (12:15)
[2021-07-14] MEDS ORDERED: hydrALAZINE 20 MG/ML VIAL SLOW IVP SCH (12:15)
[2021-07-14] MEDS ORDERED: Labetalol HCl 100 MG/20 ML VIAL SLOW IVP SCH (17:45)
[2021-07-14] MEDS ORDERED: Pregabalin 50 MG CAP PO SCH (18:15)
[2021-07-14] MEDS: Pregabalin 50 MG CAP PO SCH (18:15)
[2021-07-14] MEDS: Atorvastatin Calcium 40 MG TAB PO SCH (21:11)
[2021-07-15] MEDS: HYDROcodone/Acetaminophen 10/325 mg Tablet PO PRN ×2 (01:25→08:14)
[2021-07-15] MEDS: Citalopram 20 MG TAB PO SCH (08:13)
[2021-07-15] MEDS: Clopidogrel Bisulfate 75 MG TAB PO SCH (08:13)
[2021-07-15] MEDS: Hydroxychloroquine Sulfate 200 MG TAB PO SCH (08:15)
[2021-07-15] MEDS: buPROPion HCl 100 MG TAB PO SCH (08:15)
[2021-07-15] MEDS: Pregabalin 50 MG CAP PO SCH (08:28)
[2021-07-15] MEDS ORDERED: Amlodipine 10 MG TAB PO SCH (09:00)
[2021-07-15 11:46] VITALS: TEMP 98.1
[2021-07-15 12:39] VITALS: BP 150/104
== END 2021-07-15 12:15 | disposition home or self-care (01) ==
LOC: ERS 08:25 → ERHOLD 11:32 → NEURO 17:18
PROVIDERS: ADMIT Internal Medicine; ATTEND Internal Medicine
DX: G43.809 Other migraine, not intractable, without status migrainosus (principal); I10 Essential (primary) hypertension; H53.8 Other visual disturbances; M32.9 Systemic lupus erythematosus, unspecified; M54.42 Lumbago with sciatica, left side; J45.909 Unspecified asthma, uncomplicated; Z79.899 Other long term (current) drug therapy; Z88.1 Allergy status to other antibiotic agents; Z88.6 Allergy status to analgesic agent; Z20.822 Contact with and (suspected) exposure to COVID-19
CPT/HCPCS: 36415; 70450; 70551; 71045; 80048; 80053; 80061; 81003; 81025; 82550; 82607; 82746; 83735; 84443; 84484; 85025; 85652; 86140; 93005; 93306; 93880; 96374; 96375; G0378; J0360; Q0162; U0002

== ENCOUNTER 2021-07-16 13:45 | Outpatient (CLI) | payer BC | END 2021-07-16 13:46 | disposition home or self-care (01) | LOC: TBSIIMAG 13:45 | PROVIDERS: ATTEND Neurological Surgery | DX: M54.16 Radiculopathy, lumbar region (principal); Z98.890 Other specified postprocedural states | CPT/HCPCS: 72100 ==

== ENCOUNTER 2021-12-01 09:19 | Outpatient (CLI) | payer OTHER | END 2021-12-01 09:20 | disposition home or self-care (01) | LOC: TBSIIMAG 09:19 | PROVIDERS: ATTEND Neurological Surgery | DX: M54.16 Radiculopathy, lumbar region (principal); Z98.890 Other specified postprocedural states | CPT/HCPCS: 72100 ==

== ENCOUNTER 2022-01-20 07:21 | Day surgery (SDC) | payer OTHER ==
[2022-01-20 07:47] VITALS: BP 140/83; TEMP 98.1; BMI 31.6
[2022-01-20] MEDS ORDERED: Iopamidol-M 200 41% 20 ML VIAL ONE (14:49)
== END 2022-01-20 09:35 | disposition home or self-care (01) ==
LOC: RAD 07:21
PROVIDERS: ATTEND Physician Assistant
PROC: B01B1ZZ Fluoroscopy of Spinal Cord using Low Osmolar Contrast (ICD-10-PCS; principal; 2022-01-20)
DX: M47.26 Other spondylosis with radiculopathy, lumbar region (principal); M47.817 Spondylosis without myelopathy or radiculopathy, lumbosacral region; M48.07 Spinal stenosis, lumbosacral region; Z79.899 Other long term (current) drug therapy; Z88.1 Allergy status to other antibiotic agents; Z88.6 Allergy status to analgesic agent; Z98.1 Arthrodesis status
CPT/HCPCS: 62304; 72132; Q9966

== ENCOUNTER 2022-02-25 09:30 | Inpatient (IN) | payer OTHER ==
[2022-02-26 16:27] VITALS: BMI 35.9
[2022-03-02] MEDS ORDERED: Midazolam HCl 2 mg/2 ml Vial ONE (06:37)
[2022-03-02] MEDS ORDERED: fentaNYL Citrate/PF 100 MCG/2 ML SYRINGE ONE ×3 (06:38→09:17)
[2022-03-02] MEDS ORDERED: Ondansetron PF 4 MG/2 ML Vial IVP PRN ×2 (07:09→08:20)
[2022-03-02] MEDS ORDERED: Promethazine 25 MG TAB PO PRN (07:09)
[2022-03-02] MEDS ORDERED: Sodium Chloride 0.9% 100 ML ONE (07:09)
[2022-03-02] MEDS ORDERED: Mag-Al 1200 mg/1200 mg/30 ML UDCUP PO PRN (07:09)
[2022-03-02] MEDS ORDERED: HYDROcodone/Acetaminophen 10/325 mg Tablet PO PRN ×4 (07:09→08:42)
[2022-03-02] MEDS ORDERED: CEFAZOLIN 2 GM VIAL ONE (07:09)
[2022-03-02] MEDS ORDERED: Morphine 2 MG/ML VIAL SLOW IVP PRN ×2 (07:09→08:42)
[2022-03-02] MEDS ORDERED: diphenhydrAMINE 50 MG/ML VIAL IVP PRN ×2 (07:09→08:20)
[2022-03-02] MEDS ORDERED: Milk Of Magnesia 30 ML UDCUP PO PRN (07:09)
[2022-03-02] MEDS ORDERED: ALPRAZolam 0.25 MG TAB PO PRN ×2 (07:12→12:03)
[2022-03-02] MEDS ORDERED: Ondansetron PF 4 MG/2 ML Vial ONE ×2 (07:21→09:14)
[2022-03-02] MEDS ORDERED: Dexamethasone 20 MG/5 ML VIAL ONE (07:21)
[2022-03-02] MEDS ORDERED: PROPOFOL 200 MG/20 ML VIAL ONE (07:21)
[2022-03-02] MEDS ORDERED: HYDROmorphone 2 MG/ML VIAL ONE (08:18)
[2022-03-02] MEDS ORDERED: SUGAMMADEX SODIUM 200 MG/2 ML VIAL ONE (08:18)
[2022-03-02] MEDS ORDERED: Ondansetron HCl/PF 4 MG/2 ML Vial IVP PRN (08:20)
[2022-03-02] MEDS ORDERED: Zolpidem Tartrate 5 MG TAB PO PRN (08:20)
[2022-03-02] MEDS ORDERED: fentaNYL Citrate/PF 2,000 MCG in Sodium Chloride 0.9% 60 ML IV PRN (08:20)
[2022-03-02] MEDS ORDERED: diphenhydrAMINE 50 MG/ML VIAL IM PRN (08:20)
[2022-03-02] MEDS ORDERED: diphenhydrAMINE 25 MG CAP PO PRN (08:20)
[2022-03-02] MEDS ORDERED: Promethazine HCl 25 MG/ML VIAL IM PRN ×2 (08:20)
[2022-03-02] MEDS ORDERED: Naloxone HCl 0.4 mg/ml Vial IV PRN (08:20)
[2022-03-02] MEDS ORDERED: Promethazine HCl 25 MG/ML VIAL IVPB PRN (08:20)
[2022-03-02] MEDS ORDERED: HYDROmorphone 2 MG/ML VIAL SLOW IVP PRN (08:22)
[2022-03-02] MEDS ORDERED: Communication Order-Pharmacy FS SCH (08:30)
[2022-03-02] MEDS ORDERED: Bacitracin Zinc Ointment 30 gm TUBE ONE (08:45)
[2022-03-02] MEDS ORDERED: HYDROmorphone 0.5 MG/0.5 ML SYRINGE ONE (09:33)
[2022-03-02] MEDS ORDERED: tiZANidine HCl 4 MG TAB ONE (09:39)
[2022-03-02] MEDS: Sodium Chloride 0.9% 1,000 ML IV SCH (10:47)
[2022-03-02] MEDS: buPROPion 75 MG TAB PO SCH ×2 (10:48→21:54)
[2022-03-02] MEDS: Pregabalin 25 MG CAP PO SCH ×2 (10:48→21:55)
[2022-03-02] MEDS: fentaNYL Citrate/PF 2,000 MCG in Sodium Chloride 0.9% 60 ML IV PRN (12:25)
[2022-03-02] MEDS: CEFAZOLIN 2 GM in Sodium Chloride 0.9% 100 ML IVPB SCH ×2 (14:09→21:58)
[2022-03-02] MEDS: tiZANidine HCl 4 MG TAB PO PRN ×2 (16:16→23:52)
[2022-03-03] MEDS: Sodium Chloride 0.9% 1,000 ML IV SCH (00:44)
[2022-03-03] MEDS: fentaNYL Citrate/PF 2,000 MCG in Sodium Chloride 0.9% 60 ML IV PRN (05:52)
[2022-03-03] MEDS: tiZANidine HCl 4 MG TAB PO PRN ×2 (06:02→13:01)
[2022-03-03] MEDS: Pregabalin 25 MG CAP PO SCH (09:19)
[2022-03-03] MEDS: buPROPion 75 MG TAB PO SCH (09:19)
[2022-03-03 12:39] VITALS: BP 121/80; TEMP 97.6
== END 2022-03-03 14:46 | disposition home or self-care (01) | DRG 460 ==
LOC: SURG A 03-02 06:02 → MSONC 03-02 10:32
PROVIDERS: ADMIT Neurological Surgery; ATTEND Neurological Surgery
PROC: 0SP304Z Removal of Internal Fixation Device from Lumbosacral Joint, Open Approach (ICD-10-PCS; principal; 2022-03-02)
PROC: 0SG3071 Fusion of Lumbosacral Joint with Autologous Tissue Substitute, Posterior Approach, Posterior Column, Open Approach (ICD-10-PCS; 2022-03-02)
PROC: 3E0U0GB Introduction of Recombinant Bone Morphogenetic Protein into Joints, Open Approach (ICD-10-PCS; 2022-03-02)
DX: T84.296A Other mechanical complication of internal fixation device of vertebrae, initial encounter (principal); G89.29 Other chronic pain; M54.9 Dorsalgia, unspecified; Z20.822 Contact with and (suspected) exposure to COVID-19; Z88.1 Allergy status to other antibiotic agents; Z88.8 Allergy status to other drugs, medicaments and biological substances; Z91.018 Allergy to other foods
CPT/HCPCS: 76000; C1713; C1776; J0690; J1100; J1170; J2250; J2405; J2704; J3010; J3370; J3490; J7050; J7620

== ENCOUNTER 2022-02-25 09:32 | Outpatient (CLI) | payer OTHER ==
[2022-02-25 12:07] LABS: Mean Corpuscular HGB CONC 30.6 g/dL (32.0-36.0); Mean Corpuscular Hemoglobin 25.3 pg (27.0-33.0); Mean Corpuscular Volume 82.6 fl (81.6-98.3); Mean Platelet Volume 10.3 fl (7.4-10.4); Platelet Count 276 10x3/uL (150-450); RBC Distribution Width 14.6 % (11.5-14.5); Red Blood Cell (RBC) Count 3.56 10x6/uL (3.90-5.03); White Blood Cell (WBC) Count 4.1 10x3/uL (3.5-10.5)
[2022-02-25 12:56] LABS: Anion Gap 11 mmol/L (10-20); BUN (Urea Nitrogen) 18 mg/dL (7.0-18.7); Calc. Creatinine Clearance 0 mL/min (70-130); Calcium 9.3 mg/dL (7.8-10.44); Carbon Dioxide 25 mmol/L (22-29); Chloride 109 mmol/L (98-107); Estimated GFR 83; Glucose 82 mg/dL (70-105); Potassium 4.3 mmol/L (3.5-5.1); Sodium 141 mmol/L (136-145)
== END 2022-02-25 09:33 | disposition home or self-care (01) ==
LOC: LABBT 09:32
PROVIDERS: ATTEND Neurological Surgery
DX: Z01.818 Encounter for other preprocedural examination (principal); Z20.822 Contact with and (suspected) exposure to COVID-19
CPT/HCPCS: 80048; 85027; 87811; 93005; 93010

== ENCOUNTER 2022-03-16 09:27 | Outpatient (CLI) | payer SELFPAY | END 2022-03-16 09:28 | disposition home or self-care (01) | LOC: TBSIIMAG 09:27 | PROVIDERS: ATTEND Neurological Surgery | DX: M43.16 Spondylolisthesis, lumbar region (principal); Z98.890 Other specified postprocedural states | CPT/HCPCS: 72100 ==

== ENCOUNTER 2022-06-22 09:02 | Outpatient (CLI) | payer OTHER | END 2022-06-22 09:03 | disposition home or self-care (01) | LOC: TBSIIMAG 09:02 | PROVIDERS: ATTEND Neurological Surgery | DX: M54.16 Radiculopathy, lumbar region (principal); Z98.890 Other specified postprocedural states | CPT/HCPCS: 72100 ==

== ENCOUNTER 2022-09-29 10:38 | Outpatient (CLI) | payer OTHER | END 2022-09-29 10:39 | disposition home or self-care (01) | LOC: TBSIIMAG 10:38 | PROVIDERS: ATTEND Neurological Surgery | DX: M43.16 Spondylolisthesis, lumbar region (principal); Z98.890 Other specified postprocedural states | CPT/HCPCS: 72100 ==